=== PATIENT | female | born 1945 | race Caucasian/White ===

== ENCOUNTER 2024-06-05 14:43 | Emergency (ER) | payer MEDICARE, BC, SELFPAY ==
[2024-06-05 15:10] VITALS: BP 125/80; PULSE 73; RESP 18; TEMP 36.7; O2SAT 97; BMI 24.5
--- NOTE | 2024-06-05 15:20 | EXP.UTC ---
Discharge Plan Disposition Patient Disposition: Home, Self-Care Condition: Good Prescriptions Prescriptions: New phenazopyridine [Pyridium] 200 mg tablet 200 mg PO Q8H 2 Days Qty: 6 0RF No Action levothyroxine 175 mcg tablet 175 mcg PO DAILY Patient Comments: TAKE 1 TABLET BY MOUTH EVERY DAY clonazepam 0.5 mg tablet 0.5 mg PO BID Patient Comments: TAKE 1 TABLET BY MOUTH TWICE DAILY Referrals Follow up/Referrals: Serge Andrew MD [Primary Care Provider] - See instructions Activity Restrictions/Add. Instructions Additional Instructions/Restrictions: Continue medication that you was prescribed Your Urine was sent for culture and should be back in the next couple of days make sure to follow up with your Family Doctor to see the culture to make sure you are on the correct antibiotics make sure that you are drinking plenty of fluids Straight to ER if any life threatening symptoms Clinical Impressions Clinical Impression: Burning with urination Instructions Patient Instructions: Phenazopyridine Print Language Print Language: Citizen Of [place] Discharge ED Provider: Latasha Bernal [facility] General Stated complaint: uti Mode of Arrival: Ambulatory Source of Information: Patient Limitations: No Limitations Time Seen by Provider: 06/05/24 15:20 Description of Symptoms (Recalled from Triage Doc. by RN): PATIENT C/O BLADDER AND FLANK PAIN HEENT Symptoms (Recalled from RN notes): No Resp Symptoms (Recalled from RN notes): No Skin Symptoms (Recalled from RN notes): No MS Symptoms (Recalled from RN notes): No Functional Status (Recalled from RN notes): WNL History of Present Illness Provider Complaint: Patient states that she was seen by her PCP earlier in the week and started on Antibiotics for UTI but states that she doesnt think they are working States that she is still having burning when she urinates and still having the feeling like she has to go all the time so she came in to get her urine checked again not sure the medication she was put on helped Related Data Home Medications ?Medication ?Instructions ?Recorded ?Confirmed clonazepam 0.5 mg tablet 0.5 mg PO BID 06/05/24 06/05/24 levothyroxine 175 mcg tablet 175 mcg PO DAILY 06/05/24 06/05/24 Previous Rx's ?Medication ?Instructions ?Recorded phenazopyridine 200 mg tablet 200 mg PO Q8H pain 2 days #6 tabs 06/05/24 (Pyridium) Allergies Allergy/AdvReac Type Severity Reaction Status Date / Time No Known Allergies Allergy Verified 06/05/24 15:18 Worker's Comp Is this a Worker's Comp case?: No [facility] Disclaimer: The information contained in this section may have been updated after the patient was seen, as this information can be updated by other users. Medical History (Updated 06/05/24 @ 15:59 by Latasha Bernal APRN) Thyroid disease Depression Anxiety Urinary tract infection Hyperlipidemia Social History Smoking Status: Unknown if ever smoked alcohol intake: never current occupational status: retired and disabled Travel in the last 8 weeks: None ROS Obtained: Yes All systems reviewed & no additional complaints except as documented and Yes Systems reviewed as appropriate & no additional complaints except as documented Constitutional Constitutional: Reports system reviewed and no additional complaints, except as documented and Reports as per HPI ENT Ears, Nose, Mouth, and Throat: Reports system reviewed and no additional complaints, except as documented and Reports as per HPI Cardiovascular Cardiovascular: Reports system reviewed and no additional complaints, except as documented and Reports as per HPI Respiratory Respiratory: Reports system reviewed and no additional complaints, except as documented and Reports as per HPI Gastrointestinal Gastrointestingal: Reports system reviewed and no additional complaints, except as documented and as per HPI; Denies abdominal pain Genitourinary Female Genitourinary: Reports system reviewed and no additional complaints, except as documented, Reports as per HPI, Reports dysuria, Reports urinary frequency and Reports urinary urgency Musculoskeletal Musculoskeletal: Reports system reviewed and no additional complaints, except as documented and Reports as per HPI Integumentary/Breasts Skin/Breast: Reports system reviewed and no additional complaints, except as documented and Reports as per HPI Physical Exam General General appearance: alert and in no apparent distress ENT ENT exam: Present normal exam, normal oropharynx, mucous membranes moist and TM's normal bilaterally Respiratory Respiratory exam: Present normal lung sounds bilaterally; Absent respiratory distress or wheezes Cardiovascular Cardiovascular exam: Present regular rate, normal rhythm and normal heart sounds Abdominal Exam Abdominal exam: Present soft and normal bowel sounds; Absent distention or tenderness Neurological Exam Neurological exam: Present alert, oriented X3 and normal gait Medical Decision Making Medical Records Screening: Per USPSTF and CDC recommendations, given the prevalence of disease in our region, it is our hospital?s policy to screen for HIV and viral Hepatitis for all patients aged 18 and over and those with ongoing risk factors. Per Inquiry Pt receiving controlled substance: No Per was queried for this patient: No Vital Signs: 06/05/24 15:10 Temperature 98.0 F Temperature Source Oral Pulse Rate [Left Brachial] 73 Respiratory Rate 18 Blood Pressure [Left Arm] 125/80 Blood Pressure Mean [Left Arm] 95 Blood Pressure Source [Left Arm] Automatic Cuff Blood Pressure Position [Left Arm] Sitting 02 Sat by Pulse Oximetry 97 Oxygen Delivery Method Room Air Lab Data Lab results reviewed: Yes I reviewed the patient's lab results. Orders (Tests/Meds): ORDERS Category Date Time Status Urine Culture Stat Micro 06/05/24 14:49 Ordered
[2024-06-05 15:52] LABS: Apearance,Urine Turbid (Clear); Bilirubin,Urine Negative (Negative); Blood, Urine Negative (Negative); Color,Urine Dark Yellow (Yellow); Glucose,Urine (UA) Negative (Negative); Ketones,Urine Negative (Negative); Protein,Urine Negative (Negative); UTC Leukocyte Esterase,Urine Negative (Negative); UTC Nitrate,Urine Negative (Negative); Urobilinogen,Urine 1 EU/dl (0.2)
[2024-06-05 16:00] VITALS: BP 125/80; PULSE 73; RESP 18; TEMP 36.7; O2SAT 97
== END 2024-06-05 16:05 | disposition home or self-care (01) ==
PROVIDERS: Emergency Provider Nurse Practitioner; PCP Family Medicine
DX: R30.9 Painful micturition, unspecified (principal)
CPT/HCPCS: 81003; 87086; 99213; G0381

== ENCOUNTER 2024-06-19 09:06 | Emergency (ER) | payer MEDICARE, BC, SELFPAY ==
[2024-06-19] VITALS (11 sets, daily range): BP systolic 130–159; BP diastolic 81–96; PULSE 58–77; RESP 11–16; TEMP 36.8–37; O2SAT 95–99; BMI 26.5
--- NOTE | 2024-06-19 09:16 | CT_ITS ---
PROCEDURE INFORMATION: Exam: CTA Chest With Contrast Exam date and time: 06/19/2024 9:59 AM Age: 78 years old Clinical indication: Other: Hypoxia TECHNIQUE: Imaging protocol: Computed tomographic angiography of the chest with contrast. Exam focused on the arteries. 3D rendering (Not supervised by radiologist): MIP and/or 3D reconstructed images were created by the technologist. Radiation optimization: All CT scans at this facility use at least one of these dose optimization techniques: automated exposure control; mA and/or kV adjustment per patient size (includes targeted exams where dose is matched to clinical indication); or iterative reconstruction. Contrast material: ISOVUE 370; Contrast volume: 75 ml; Contrast route: INTRAVENOUS (IV); COMPARISON: CT ABDOMEN PELVIS W CON 06/19/2024 9:59 AM FINDINGS: Pulmonary arteries: Contrast within the main pulmonary artery 630 Hounsfield units which is excellent. Aorta: Ectatic ascending aorta at 32 x 33 mm. Lungs: Hyperinflation mild emphysematous type changes. Pleural spaces: Unremarkable. No pneumothorax. No pleural effusion. Heart: Unremarkable. No cardiomegaly. No pericardial effusion. Lymph nodes: Unremarkable. No enlarged lymph nodes. Diaphragm: Elevated left hemidiaphragm. Minimal left base consolidation having the appearance of atelectasis. Intraperitoneal space: The abdomen and pelvis will be discussed in a separate examination. Bones/joints: Arthritic changes in the thoracolumbar spine with cervical spine incompletely snow fixation. Soft tissues: Unremarkable. IMPRESSION: 1. No evidence of pulmonary emboli. 2. Mild left base consolidation possibly atelectasis although superimposed infection can not be excluded. COMMENTS: The presence of pulmonary emphysema on CT is an independent risk factor for lung cancer. In the absence of a history or active diagnosis of lung cancer, it is recommended that this patient with emphysema be evaluated for enrollment in a low dose CT lung cancer screening program.
--- NOTE | 2024-06-19 09:16 | CT_ITS ---
PROCEDURE INFORMATION: Exam: CT Abdomen And Pelvis With Contrast Exam date and time: 06/19/2024 9:59 AM Age: 78 years old Clinical indication: Abdominal pain; Additional info: Lower abd pain TECHNIQUE: Imaging protocol: Computed tomography of the abdomen and pelvis with contrast. 3D rendering (Not supervised by radiologist): MIP and/or 3D reconstructed images were created by the technologist. Radiation optimization: All CT scans at this facility use at least one of these dose optimization techniques: automated exposure control; mA and/or kV adjustment per patient size (includes targeted exams where dose is matched to clinical indication); or iterative reconstruction. Contrast material: ISOVUE; Contrast volume: 75 ml; Contrast route: IV; COMPARISON: CT ANGIO CHEST PE PROTOCOL 06/19/2024 9:59 AM FINDINGS: Lungs: The lungs were discussed in a separate examination. Liver: The liver is very fatty nonenlarged. Gallbladder and biliary ducts: Normal. No calcified stones. No ductal dilation. Pancreas: Normal. No ductal dilation. Spleen: There is a subcapsular fluid collection involving the posterior aspect of the spleen measuring 12 x 22 mm image 4/20. Adrenal glands: Normal. No mass. Kidneys and ureters: Subtle air suspected diminished cortical enhancement involving the posterior aspect of the right kidney seen on images 4/41 through 4/44. Can not exclude pyelonephritis. Stomach and bowel: [id number]-lveam amount of retained fecal material. Appendix: Unremarkable visualized small right lower quadrant appendix. Intraperitoneal space: See Spleen finding. Vasculature: Vascular calcifications without aneurysm. Lymph nodes: Unremarkable. No enlarged lymph nodes. Urinary bladder: Unremarkable as visualized. Reproductive: Unremarkable as visualized. Bones/joints: Arthritis in listhesis in the spine. Schmorl's nodes in the spine. Soft tissues: Moderate artifact is noted from the patient's arms scanned by her side. IMPRESSION: 1. Extensive fecal retention. 2. Subcapsular splenic fluid collection. The spleen is otherwise unremarkable. 3. Fatty liver. 4. Area of suspected diminished cortical enhancement involving the right kidney posteriorly. Possible pyelonephritis
--- NOTE | 2024-06-19 09:21 | HMH.EDGENADL ---
Discharge Plan Disposition Patient Disposition: Admitted Chief Complaint: Abdominal Pain Prescriptions Prescriptions: No Action levothyroxine 175 mcg tablet 175 mcg PO DAILY Patient Comments: TAKE 1 TABLET BY MOUTH EVERY DAY clonazepam 0.5 mg tablet 0.5 mg PO BID Patient Comments: TAKE 1 TABLET BY MOUTH TWICE DAILY phenazopyridine [Pyridium] 200 mg tablet 200 mg PO Q8H 2 Days Qty: 6 0RF Referrals Follow up/Referrals: Serge Andrew MD [Primary Care Provider] - See instructions Clinical Impressions Clinical Impression: Acute UTI, Encephalopathy acute, Hypokalemia, Hypoxemia Instructions Patient Instructions: DI for Acute Abdominal Pain Print Language Print Language: [place] Discharge ED Provider: Fausto Bravo General Adult HPI General Chief complaint: Abdominal Pain Stated complaint: lower abd pain, burning chills Time Seen by Provider: 06/19/24 09:10 History of Present Illness HPI narrative: Patient is a 78-year-old female present today with multiple complaints. She primarily states that she believes that she has a urinary tract infection stating that she is having significant burning/dysuria with urination. This has been ongoing since around [place]. She was recently in the urgent treatment clinic where she had a normal urinalysis but was told she had a urinary tract infection and has been on antibiotics. She is unsure as to the exact antibiotic that she has been on. She has had a mild cough but states that is been at her baseline she has a history of chronic smoking and occasionally has bronchitis but has not been diagnosed with COPD she does not require oxygen at home. Has never been told that she has hypoxemia. She denies any significant shortness of breath or chest pain today. She does states she has been having chills at home. And diffuse abdominal pain. Related Data Home Medications ?Medication ?Instructions ?Recorded ?Confirmed clonazepam 0.5 mg tablet 0.5 mg PO BID 06/05/24 06/19/24 levothyroxine 175 mcg tablet 175 mcg PO DAILY 06/05/24 06/19/24 Previous Rx's ?Medication ?Instructions ?Recorded phenazopyridine 200 mg tablet 200 mg PO Q8H pain 2 days #6 tabs 06/05/24 (Pyridium) Allergies Allergy/AdvReac Type Severity Reaction Status Date / Time No Known Allergies Allergy Verified 06/19/24 10:36 [facility] Disclaimer: The information contained in this section may have been updated after the patient was seen, as this information can be updated by other users. Medical History (Updated 06/19/24 @ 11:56 by Fausto Bravo MD) Thyroid disease Depression Anxiety Urinary tract infection Hyperlipidemia Social History Smoking Status: Current every day smoker alcohol intake: never current occupational status: retired and disabled Travel in the last 8 weeks: None Have you lived/traveled outside US in past 30 days?: No Contact w/someone who lives/traveled outside US past 30 days?: No Exposure to someone with infectious disease in past 14 days?: No Do you have a fever (greater than 100.4 F or 38 C)?: No Have you tested positive for COVID-19: No Exposed to someone with COVID-19 in past 14 days?: No Do you have a sore throat?: No Do you have a cough?: No Do you have any weakness?: No Do you have any diarrhea?: No Are you experiencing any unusual bleeding?: No Do you have any muscle aches/pain?: No Do you have any abdominal pain?: Yes Are you experiencing loss of taste or smell?: No ROS Obtained: Yes All systems reviewed & no additional complaints except as documented Physical Exam General General appearance: alert and in no apparent distress Respiratory Respiratory exam: Present normal lung sounds bilaterally and other (Oxygen saturations 88 to 89% on room air with a good waveform placed on 2 L with correction); Absent respiratory distress Cardiovascular Cardiovascular exam: Present regular rate and normal rhythm Abdominal Exam Abdominal exam: Present soft and tenderness (Patient has diffuse abdominal tenderness primarily located in the lower bilateral quadrants no CVA tenderness bilaterally) Neurological Exam Neurological exam: Present alert and oriented X3 Medical Decision Making Medical Records Screening: Per USPSTF and CDC recommendations, given the prevalence of disease in our region, it is our hospital?s policy to screen for HIV and viral Hepatitis for all patients aged 18 and over and those with ongoing risk factors. Per Inquiry Pt receiving controlled substance: No Vital Signs: 06/19/24 09:08 06/19/24 09:12 06/19/24 09:30 Temperature 98.6 F Temperature Source Oral Pulse Rate 77 70 Pulse Rate [Left Radial] 65 Respiratory Rate 12 15 Blood Pressure 134/84 142/88 H Blood Pressure [Right Arm] 134/84 Blood Pressure Mean [Right Arm] 100 02 Sat by Pulse Oximetry 97 95 96 Oxygen Delivery Method Nasal Cannula Nasal Cannula Nasal Cannula Oxygen Flow Rate (LPM) 2 2 2 06/19/24 10:19 06/19/24 10:30 06/19/24 11:00 Temperature Temperature Source Pulse Rate 66 63 Pulse Rate [Left Radial] Respiratory Rate 16 13 14 Blood Pressure 140/81 141/82 H 141/93 H Blood Pressure [Right Arm] Blood Pressure Mean [Right Arm] 02 Sat by Pulse Oximetry 95 95 95 Oxygen Delivery Method Room Air Room Air Nasal Cannula Oxygen Flow Rate (LPM) 2 06/19/24 11:30 Temperature Temperature Source Pulse Rate 58 L Pulse Rate [Left Radial] Respiratory Rate 16 Blood Pressure 142/83 H Blood Pressure [Right Arm] Blood Pressure Mean [Right Arm] 02 Sat by Pulse Oximetry 97 Oxygen Delivery Method Nasal Cannula Oxygen Flow Rate (LPM) 2 Lab Data Lab results reviewed: Yes I reviewed the patient's lab results. Lab Results 06/19/24 09:26: WBC 4.9, RBC 4.90, Hgb 14.1, Hct 42.8, MCV 87.3, MCH 28.8, MCHC 32.9, RDW 15.4, Plt Count 258, MPV 9.9, Neut % (Auto) 62.5, Lymph % (Auto) 28.0, [place] % (Auto) 7.1, Eos % (Auto) 1.2, Baso % (Auto) 1.0, Neut # (Auto) 3.1, Lymph # (Auto) 1.4, [place] # (Auto) 0.4, Eos # (Auto) 0.1, Baso # (Auto) 0.1, Sodium 135 L, Potassium 2.7 L*, Chloride 97 L, Carbon Dioxide 29, Anion Gap 11.7, BUN 10, Creatinine 1.10 H, Estimated Creat Clear 46, Estimated GFR 48 L, Est GFR ( Amer) 58 L, Glucose 103 H, Lactate 1.6, Calcium 8.6, Total Bilirubin 0.9, AST 45 H, ALT 23, Alkaline Phosphatase 69, Troponin I 0.02, NT-Pro-B Natriuret Pep 109, Total Protein 6.4, Albumin 4.1, Globulin 2.3, Albumin/Globulin Ratio 1.8, Lipase 52 06/19/24 09:31: SARS-CoV-2 (PCR) Not detected, Influenza A Untype (PCR) Not detected, Influenza Type B (PCR) Not detected 06/19/24 09:45: HCV Ab JOANNA w/Rflx PCR Qn Negative, HIV Ag/Ab Combo Qual Negative 06/19/24 10:17: Urine Color Yellow, Urine Appearance Clear, Urine pH 6.5, Ur Specific [place] 1.015, Urine Protein 1+ A, Urine Glucose (UA) Trace, Urine Ketones Trace, Urine Blood Negative, Urine Nitrate Positive A, Urine Bilirubin 2+ A, Urine Urobilinogen 2.0, Ur Leukocyte Esterase Trace, Urine RBC None, Urine WBC 5-10, Ur Squamous Epith Cells 3-5, Urine Bacteria 1+, Urine Yeast 2+ 06/19/24 09:26 06/19/24 09:26 Orders (Tests/Meds): ED MEDICATIONS Generic Name Dose Route Start Last Admin Trade Name Freq PRN Reason Stop Dose Admin Potassium Chloride/Water 100 mls @ 100 mls/hr 06/19/24 10:00 06/19/24 11:12 Potassium Chloride 10meq/100ml Ivpb IV 06/19/24 12:59 100 mls/hr Q1H ADITYA Administration Ceftriaxone Sodium 1 gm/ 50 mls @ 100 mls/hr 06/19/24 11:22 Sodium Chloride IV 06/19/24 11:51 ONCE ONE Discontinued Medications Generic Name Dose Route Start Last Admin Trade Name Freq PRN Reason Stop Dose Admin Acetaminophen 1,000 mg 06/19/24 09:16 06/19/24 09:38 Acetaminophen 1,000mg/100ml Vial IV 06/19/24 09:17 1,000 mg ONCE ONE Administration Sodium Chloride 1,000 mls @ 999 mls/hr 06/19/24 09:30 06/19/24 09:38 Sod Chlor 0.9% 1000ml Bag IV 06/19/24 10:30 999 mls/hr .Q1H1M ADITYA Administration Iopamidol 70 ml 06/19/24 10:08 06/19/24 10:09 Iopamidol-370 (76%);100ml Bottle IV 06/19/24 10:09 70 ml ONCE ONE Administration Potassium Chloride 40 meq 06/19/24 09:47 06/19/24 09:52 Potassium Chloride 20meq Tab PO 06/19/24 09:48 40 meq ONCE ONE Administration Sodium Chloride 50 ml 06/19/24 10:08 06/19/24 10:09 0.9 % Sodium Chloride 50 Ml Vial IV 06/19/24 10:09 50 ml ONCE ONE Administration Sodium Chloride 10 ml 06/19/24 10:08 06/19/24 10:09 Sodium Chloride 0.9% 10ml Syr (Rad Only) IV 06/19/24 10:09 10 ml ONCE ONE Administration ORDERS Category Date Time Status CT abdomen pelvis w con Stat Cat Scan 06/19/24 09:[address] angio chest PE protocol Stat Cat Scan 06/19/24 09:16 Completed BNP [NT Pro Brain Natriuretic Pep.] Stat Lab 06/19/24 09:26 Completed CBC w/Auto Diff [Complete Blood Count Auto Diff] Stat Lab 06/19/24 09:26 Completed CMP [Comprehensive Metabolic Panel] Stat Lab 06/19/24 09:26 Completed HIV Combo Stat Lab 06/19/24 09:45 Completed Hepatitis C Ab Qual. W/ RFX Stat Lab 06/19/24 09:45 Completed Lactic Acid Stat Lab 06/19/24 09:26 Completed Lipase Stat Lab 06/19/24 09:26 Completed Rapid PCR Covid and Flu A/B Stat Lab 06/19/24 09:31 Completed Trop I [Troponin I] Stat Lab 06/19/24 09:26 Completed Troponin I Q3H Lab 06/19/24 12:30 Ordered Troponin I Q3H Lab 06/19/24 15:30 Ordered UA [Urinalysis and Microscopic] Stat Lab 06/19/24 10:17 Completed Blood Culture Stat Micro 06/19/24 09:41 Received Urine Culture Stat Micro 06/19/24 10:17 Received ECG Data Tracing #1: I reviewed this ECG and interpreted as documented below: Ventricular rate 63 normal sinus rhythm there are nonspecific T wave inversions in the inferior and anterolateral precordial leads which are nonspecific no ST depressions or elevations normal axis no significant conduction abnormalities Medical Decision Narrative: 78-year-old presenting with multiple complaints today. First of all she is hypoxic on initial evaluation. She denies any respiratory symptoms. Ox saturations were 88 to 89% she does have a history of chronic smoking and from historical standpoint sounds like she occasionally has bronchitis. She may have underlying COPD that is been undiagnosed. However she has been in many healthcare settings and is never been told that she is hypoxemic so this seems to be a new problem. For this reason I will obtain a CT PE in the setting of already getting a CT scan of her abdomen for the significant abdominal pain and lower abdominal discomfort that was not explained by recent negative urinalysis. Differential includes pulmonary embolism pneumonia abdominal pathology such as malignancy diverticulitis colitis etc. Labs pending as well IV fluids and Tylenol have been administered. Additionally patient has been having some shaking chills and blood cultures COVID and flu have also been added to this workup. Of note patient's pulled me out into the hallway and stated that the patient has been out of her mind the last few months . Patient's labs returned which showed a potassium of 2.7. CT scan of the patient's chest abdomen pelvis were performed which I personally interpreted which shows no significant abnormalities aside from some contrast abnormality uptake in the kidney consistent with possible pyelonephritis which is consistent with her urinary tract infection on her urinalysis. Therefore I believe that some of her waxing and waning mental symptoms may be secondary to encephalopathy. She also has a very low potassium that will take an extended period of time to replace additionally she came in hypoxic at this point without a definitive diagnosis for her back hypoxemia I suspect that this is chronic in nature but she is nonetheless on the new oxygen requirement right now. I discussed the case with Dr. Andrei rhodes who will admit her for IV antibiotics and further management. Critical Care Critical Care Time Critical Care Time: Yes Attestation: On 06/19/24, the high probability of a clinically significant, sudden or life threatening deterioration of the following system(s) required my full and direct attention, intervention and personal management. The time I documented below is in addition to time spent performing reported procedures but includes the following listed in this critical care notation. Total Time Total Critical Care Time: 35
[2024-06-19 09:36] LABS: Basophils # 0.1 K/mm3 (0-0.2); Eosinophils # 0.1 K/mm3 (0.0-0.4); Eosinophils % 1.2 % (0.1-12.0); Hematocrit 42.8 % (37.0-47.0); Hemoglobin 14.1 g/dL (12.2-16.2); Lymphocytes # 1.4 K/mm3 (0.7-4.5); Mean Corpuscular HGB Conc 32.9 g/dL (31.8-35.4); Mean Corpuscular Hemoglobin 28.8 pg (27.0-31.2); Mean Corpuscular Volume 87.3 fl (81-99); Mean Platelet Volume 9.9 fl (7.4-10.4); Monocytes # 0.4 K/mm3 (0.1-1.0); Monocytes % 7.1 % (1.7-9.3); Neutrophils # 3.1 K/mm3 (1.8-7.8); Neutrophils % 62.5 % (37.0-80.0); Platelet Count 258 K/mm3 (142-424); Red Cell Distribution Width 15.4 % (11.5-17.5); White Blood Count 4.9 K/mm3 (4.8-10.8)
--- NOTE | 2024-06-19 09:36 | ECG_ITS ---
APPROVED REPORT Exam: Resting ECG HR:63 bpm ECG Measurements Heart Rate 63 AXES RI 168 P 74 QRSd 86 QRS 20 QT 427 T 209 QTc 435 Conclusion SINUS RHYTHM POSSIBLE RIGHT VENTRICULAR CONDUCTION DELAY [RSR (QR) IN V1/V2] MODERATE T-WAVE ABNORMALITY, CONSIDER ANTEROLATERAL ISCHEMIA [-0.1+ mV T-WAVE IN V3-V6] MODERATE T-WAVE ABNORMALITY, CONSIDER INFERIOR ISCHEMIA [-0.1+ mV T-WAVE IN II/aVF] ABNORMAL ECG UNCONFIRMED REPORT Electronically signed by : Lm Bravo, 06/19/2024 15:00:08
[2024-06-19] MEDS: 0.9 % SODIUM CHLORIDE 1000ML 1,000 ML 999 ML IV (09:38)
[2024-06-19] MEDS: ACETAMINOPHEN 1,000MG/100ML VIAL 1000 MG IV (09:38)
[2024-06-19 09:39] LABS: Coronavirus 19, PCR Not Detected (NotDetected); Influenza A, PCR Not Detected (NotDetected); Influenza B, PCR Not Detected (NotDetected)
[2024-06-19 09:44] LABS: Albumin Level 4.1 g/dl (3.5-5.0); Chloride 97 mmol/L (98-107); Sodium 135 mmol/L (136-145)
[2024-06-19 09:46] LABS: Potassium 2.7 mmoL/L (3.5-5.1)
--- NOTE | 2024-06-19 09:46 | PC.NURSE ---
aware of potassium
[2024-06-19 09:47] LABS: Alanine Aminotransferase 23 U/L (12-78); Albumin/Globulin Ratio 1.8 (1.1-1.8); Alkaline Phosphatase 69 U/L (38-126); Anion Gap 11.7 mEq/L (5-15); Aspartate Amino Transferase 45 U/L (14-36); Bilirubin,Total 0.9 mg/dl (0.2-1.3); Blood Urea Nitrogen 10 mg/dl (7-17); Calcium 8.6 mg/dl (8.4-10.2); Carbon Dioxide 29 mmol/L (22.0-30.0); Creatinine Clearance Estimated 46 mL/min (50-200); Estimated Glomerular Filt Rate 48 ml/min (>60); GFR (African American) 58 ML/MIN (>60); Globulin 2.3 g/dL (1.3-3.2); Glucose 103 mg/dl (74-100); Total Protein,Serum 6.4 g/dl (6.3-8.2)
[2024-06-19 09:48] LABS: Lipase 52 U/L (23-300)
[2024-06-19] MEDS: POTASSIUM CHLORIDE 20MEQ TAB 40 MEQ PO (09:52)
[2024-06-19] MEDS: KCl 10mEq/100ml 100 ML 100 MEQ IV ×3 (09:53→12:13)
--- NOTE | 2024-06-19 09:54 | PC.NURSE ---
pt to CT via stretcher
[2024-06-19 09:57] LABS: NT Pro Brain Natriuretic Pep. 109 pg/mL (0-450)
[2024-06-19 09:59] LABS: Troponin I 0.02 ng/ml (0.00-0.034)
[2024-06-19] MEDS: IOPAMIDOL-370 (76%);100ML BOTTLE 70 ML IV (10:09)
[2024-06-19] MEDS: SODIUM CHLORIDE 0.9% 10ML SYR (RAD ONLY) 10 ML IV (10:09)
[2024-06-19] MEDS: 0.9 % SODIUM CHLORIDE 50 ML VIAL IV (10:09)
--- NOTE | 2024-06-19 10:12 | PC.NURSE ---
pt back to room via stretcher
[2024-06-19 10:16] LABS: Lactic Acid 1.6 mmol/L (0.7-2.1)
[2024-06-19 10:29] LABS: Microscopic, Urine URINE MICROSCOPIC (MICROSCOPIC)
[2024-06-19 10:39] LABS: Appearance,Urine CLEAR (Clear); Blood, Urine Negative (Negative); Color,Urine YELLOW (Yellow); Glucose,Urine (UA) TRACE (Negative); Ketones,Urine TRACE (Negative); Leukocyte Esterase,Urine TRACE (Negative); Nitrate,Urine POSITIVE (Negative); PH,Urine 6.5 (5.0-8.5); Protein,Urine 1+ (Negative); Specific Gravity, Urine 1.015 (1.005-1.030)
--- NOTE | 2024-06-19 11:01 | PC.NURSE ---
I rounded on the pt. no new complaints. I took her a warm blanket. call guevara in reach.
[2024-06-19 11:07] LABS: HIV Combo NEGATIVE (Negative)
[2024-06-19 11:14] LABS: Hepatitis C Ab Qual. W/ RFX NEGATIVE (Negative)
[2024-06-19 11:19] LABS: Bacteria,Urine 1+ /lpf; Yeast,Urine 2+ /lpf
[2024-06-19 11:20] LABS: Bilirubin,Urine 2+ (Negative)
--- NOTE | 2024-06-19 11:53 | PC.NURSE ---
on phone with hospitalist
--- NOTE | 2024-06-19 11:54 | PC.NURSE ---
call made to [facility] house supervisor for bed placement
--- NOTE | 2024-06-19 12:08 | PC.NURSE ---
rounded on pt no needs at this time. she did move from bed to the chair and o2 was put back on pt at this time
--- NOTE | 2024-06-19 12:37 | PC.NURSE ---
report called to jaye on second floor
--- NOTE | 2024-06-19 12:43 | PC.NURSE ---
holding pt in ER until arrives. pt states she does not want to stay in the hospital for care, she wants to go home due to her missing her cats
[2024-06-19] MEDS: CEFTRIAXONE SODIUM 1 GM in 0.9 % SODIUM CHLORIDE 50 ML IV (13:36)
== END 2024-06-19 13:52 | disposition home or self-care (01) ==
LOC: ER 11:56 → 2ND 12:24
PROVIDERS: Emergency Provider Student in an Organized Health Care Education/Training Program; PCP Family Medicine
DX: R09.02 Hypoxemia (principal); E87.6 Hypokalemia; G93.40 Encephalopathy, unspecified; R10.30 Lower abdominal pain, unspecified; R30.0 Dysuria; R30.9 Painful micturition, unspecified; R05.9 Cough, unspecified; Z72.0 Tobacco use
CPT/HCPCS: 36415; 71275; 74177; 80053; 81001; 83605; 83690; 83880; 84484; 85025; 86803; 87040; 87086; 87389; 87636; 93005; 96361; 96365; 99291; J0131; J0696; J3480; J7030; Q9967

== ENCOUNTER 2024-07-10 09:21 | Inpatient (IN) | payer MEDICARE, BC, SELFPAY ==
[2024-07-10] VITALS (16 sets, daily range): BP systolic 120–147; BP diastolic 75–90; PULSE 54–77; RESP 16–21; TEMP 36.5–37; O2SAT 90–98; BMI 21.2; BMI 24.1
--- NOTE | 2024-07-10 09:38 | HMH.EDGENADL ---
Discharge Plan Disposition Chief Complaint: Urogenital-Female Prescriptions Prescriptions: No Action levothyroxine 175 mcg tablet 200 mcg PO DAILY Patient Comments: TAKE 1 TABLET BY MOUTH EVERY DAY clonazepam 0.5 mg tablet 0.5 mg PO BID Patient Comments: TAKE 1 TABLET BY MOUTH TWICE DAILY phenazopyridine [Pyridium] 200 mg tablet 200 mg PO Q8H 2 Days Qty: 6 0RF methenamine hippurate 1 gram tablet 1 g PO BID Patient Comments: TAKE 1 TABLET BY MOUTH TWICE DAILY acetaminophen-codeine 300-30 mg tablet 1 tab PO TID PRN (Reason: pelvic pain) Patient Comments: TAKE 1 TABLET BY MOUTH THREE TIMES DAILY FOR 4 DAYS NEEDED estradiol 0.01 % (0.1 mg/gram) cream 1 applic VAGINAL WEEKLY Patient Comments: INSERT 1 GRAM VAGINALLY 3 TIMES PER WEEK Referrals Follow up/Referrals: Serge Andrew MD [Primary Care Provider] - See instructions Clinical Impressions Clinical Impression: Encephalopathy, Acute UTI, Generalized weakness, Vaginal yeast infection, Acute hypokalemia, Acute hyponatremia, Constipation Instructions Patient Instructions: DI for Urinary Tract Infection (UTI), DI for Urinary Tract Infection in Children Print Language Print Language: Indonesian Discharge ED Provider: Fausto Bravo General Adult HPI General Chief complaint: Urogenital-Female Stated complaint: pain and frequent urination, confusion, not eating Time Seen by Provider: 07/10/24 09:38 Mode of Arrival: Ambulatory Source of Information: Patient and Spouse Description of Symptoms (Recalled from ER Triage Doc. by RN): Patient presents with her . States she was originally diagnosed right after [place] with a bladder and a kidney infection. States she has seen her primary care provider and urologist, none of which has offered any explanations. States she is having increased weakness, confusion, increase lower abdominal pain, and the patient states, I'm burning like crazy. States she had an ultrasound on at [facility]. The majority of th history of present illness is obtained from the patient's spouse. The patient is a poor historian and only provides vague responses to questions. History of Present Illness HPI narrative: Patient is a 78-year-old female brought in today with multiple complaints. Primarily she describes urinary burning and pain in her lower pelvis. She has known history of organ prolapse which was diagnosed many years ago. She was recently in the emergency department seen by me on [address] scan showing abnormal uptake in the kidney consistent with pyelonephritis in addition to a nitrite positive urine. She also had a potassium of 2.7. At that time given the concerns of her with encephalopathy I wanted to keep her in the hospital for admission however she ended up refusing. brings her in today saying her symptoms have only worsened. He did follow-up with urology who gave her some cream for her vagina in addition to another medication for her symptoms. Urine culture was negative on last evaluation as well. Has been states her mental status is worsened and her generalized weakness has worsened. He states she still gets very cantankerous and irritated when discussing her confusion but overall her symptoms have just worsened. Both of their primary concerns are the ongoing abdominal pain and lower abdomen. Related Data Home Medications ?Medication ?Instructions ?Recorded ?Confirmed clonazepam 0.5 mg tablet 0.5 mg PO BID 06/05/24 07/10/24 levothyroxine 175 mcg tablet 200 mcg PO DAILY 06/05/24 07/10/24 acetaminophen 300 mg-codeine 30 mg 1 tab PO TID PRN pelvic pain 07/10/24 07/10/24 tablet estradiol 0.01% (0.1 mg/gram) 1 applic vaginal WEEKLY 07/10/24 07/10/24 vaginal cream methenamine hippurate 1 gram tablet 1 g PO BID 07/10/24 07/10/24 Previous Rx's ?Medication ?Instructions ?Recorded phenazopyridine 200 mg tablet 200 mg PO Q8H pain 2 days #6 tabs 06/05/24 (Pyridium) Allergies Allergy/AdvReac Type Severity Reaction Status Date / Time No Known Allergies Allergy Verified 07/10/24 09:29 [facility] Disclaimer: The information contained in this section may have been updated after the patient was seen, as this information can be updated by other users. Medical History Thyroid disease Depression Anxiety Urinary tract infection Hyperlipidemia Social History Smoking Status: Never smoker alcohol intake: never current occupational status: retired and disabled Travel in the last 8 weeks: None Have you lived/traveled outside [place] in past 30 days?: No Contact w/someone who lives/traveled outside US past 30 days?: No Exposure to someone with infectious disease in past 14 days?: No Do you have a fever (greater than 100.4 F or 38 C)?: No Have you tested positive for COVID-19: No Exposed to someone with COVID-19 in past 14 days?: No Do you have a sore throat?: No Do you have a cough?: No Do you have any weakness?: No Do you have any diarrhea?: No Are you experiencing any unusual bleeding?: No Do you have any muscle aches/pain?: No Do you have any abdominal pain?: No Are you experiencing loss of taste or smell?: No ROS Obtained: Yes All systems reviewed & no additional complaints except as documented Physical Exam General General appearance: lethargic (Speaking very slowly) Respiratory Respiratory exam: Present normal lung sounds bilaterally Cardiovascular Cardiovascular exam: Present regular rate Abdominal Exam Abdominal exam: Present soft and tenderness (Lower abdominal tenderness); Absent distention Neurological Exam Neurological exam: Present alert and oriented X3 Medical Decision Making Medical Records Screening: Per USPSTF and CDC recommendations, given the prevalence of disease in our region, it is our hospital?s policy to screen for HIV and viral Hepatitis for all patients aged 18 and over and those with ongoing risk factors. Per Inquiry Pt receiving controlled substance: No Vital Signs: 07/10/24 09:24 07/10/24 09:40 07/10/24 09:45 Temperature 98.6 F Temperature Source Oral Pulse Rate 69 68 Pulse Rate [Radial] 77 Respiratory Rate 16 21 Blood Pressure 132/84 121/80 Blood Pressure [R Arm] 130/76 Blood Pressure Mean Blood Pressure Mean [R Arm] 94 02 Sat by Pulse Oximetry 95 95 95 Oxygen Delivery Method Room Air Room Air Room Air 07/10/24 10:00 07/10/24 12:03 07/10/24 12:16 Temperature Temperature Source Pulse Rate 65 57 L 56 L Pulse Rate [Radial] Respiratory Rate 17 18 18 Blood Pressure 126/77 129/75 123/83 Blood Pressure [R Arm] Blood Pressure Mean 98 92 Blood Pressure Mean [R Arm] 02 Sat by Pulse Oximetry 95 98 94 L Oxygen Delivery Method Room Air 07/10/24 12:31 07/10/24 12:45 07/10/24 13:00 Temperature Temperature Source Pulse Rate 58 L 57 L 58 L Pulse Rate [Radial] Respiratory Rate 18 18 18 Blood Pressure 138/87 147/84 H 146/83 H Blood Pressure [R Arm] Blood Pressure Mean 104 96 93 Blood Pressure Mean [R Arm] 02 Sat by Pulse Oximetry 97 96 96 Oxygen Delivery Method Lab Data Lab results reviewed: Yes I reviewed the patient's lab results. Lab Results 07/10/24 09:40: Urine Color Yellow, Urine Appearance Clear, Urine pH 6.5, Ur Specific Bric[place] 1.010, Urine Protein Negative, Urine Glucose (UA) Negative, Urine Ketones Negative, Urine Blood Negative, Urine Nitrate Positive A, Urine Bilirubin Negative, Urine Urobilinogen 0.2, Ur Leukocyte Esterase 1+ A, Urine RBC None, Urine WBC 5-10, Ur Squamous Epith Cells Occasional, Urine Bacteria Trace, Urine Yeast Occasional 07/10/24 10:20: WBC 3.7 L, RBC 4.66, Hgb 13.7, Hct 40.5, MCV 86.9, MCH 29.4, MCHC 33.8, RDW 15.3, Plt Count 252, MPV 10.2, Neut % (Auto) 63.5, Lymph % (Auto) 26.2, [place] % (Auto) 8.1, Eos % (Auto) 1.1, Baso % (Auto) 0.8, Neut # (Auto) 2.4, Lymph # (Auto) 1.0, [place] # (Auto) 0.3, Eos # (Auto) 0.0, Baso # (Auto) 0.0, Lactate 1.6, Ammonia < 9 L 07/10/24 10:23: VBG pH 7.40, VBG pCO2 50.9, VBG pO2 30.9, VBG HCO3 30.7 H, VBG Total CO2 32.2 H, VBG O2 Saturation 61.6, VBG Base Excess 5.8 H, VBG Lactic Acid 1.4 07/10/24 10:57: PT 11.3, INR 1.01, Sodium 130 L, Potassium 2.4 L*, Chloride 93 L, Carbon Dioxide 34 H, Anion Gap 5.4, BUN 11, Creatinine 1.30 H, Estimated Creat Clear 31, Estimated GFR 40 L, Est GFR ( Amer) 48 L, Glucose 94, Calcium 8.6, Phosphorus 2.7, Magnesium 2.1, Total Bilirubin 0.9, AST 41 H, ALT 20, Alkaline Phosphatase 61, Troponin I 0.03, Total Protein 6.0 L, Albumin 3.9, Globulin 2.1, Albumin/Globulin Ratio 1.9 H, Lipase 50 07/10/24 10:20 07/10/24 10:57 Orders (Tests/Meds): ED MEDICATIONS Generic Name Dose Route Start Last Admin Trade Name Freq PRN Reason Stop Dose Admin Potassium Chloride/Water 100 mls @ 100 mls/hr 07/10/24 11:30 07/10/24 12:19 Potassium Chloride 10meq/100ml Ivpb IV 07/10/24 14:29 100 mls/hr Q1H ADITYA Administration Discontinued Medications Generic Name Dose Route Start Last Admin Trade Name Freq PRN Reason Stop Dose Admin Fluconazole 200 mg 07/10/24 11:20 07/10/24 11:27 Fluconazole 200mg Tablet PO 07/10/24 11:21 200 mg ONCE ONE Administration Lactated Ringer's 1,000 mls @ 999 mls/hr 07/10/24 10:15 07/10/24 10:25 Lactated Ringer's 1000 Ml Bag IV 07/10/24 11:15 999 mls/hr .Q1H1M ADITYA Administration Ceftriaxone Sodium 1 gm/ 50 mls @ 100 mls/hr 07/10/24 11:19 07/10/24 11:26 Sodium Chloride IV 07/10/24 11:48 100 mls/hr ONCE ONE Administration Iopamidol 75 ml 07/10/24 11:35 07/10/24 11:36 Iopamidol-370 (76%);100ml Bottle IV 07/10/24 11:36 75 ml ONCE ONE Administration Ketorolac Tromethamine 15 mg 07/10/24 10:02 07/10/24 10:24 Ketorolac 30mg/Ml Vial IV 07/10/24 10:03 15 mg ONCE ONE Administration Ondansetron HCl 4 mg 07/10/24 10:02 07/10/24 10:25 Ondansetron 4mg/2ml Vial IV 07/10/24 10:03 4 mg ONCE ONE Administration Potassium Chloride 40 meq 07/10/24 11:19 07/10/24 11:26 Potassium Chloride 20meq Tab PO 07/10/24 11:20 40 meq ONCE ONE Administration Sodium Chloride 10 ml 07/10/24 11:35 07/10/24 11:36 Sodium Chloride 0.9% 10ml Syr (Rad Only) IV 07/10/24 11:36 10 ml ONCE ONE Administration ORDERS Category Date Time Status CT abdomen pelvis w con Stat Cat Scan 07/10/24 10:[address] head/brain wo con Stat Cat Scan 07/10/24 10:02 Completed Ammonia Stat Lab 07/10/24 10:20 Completed CBC w/Auto Diff [Complete Blood Count Auto Diff] Stat Lab 07/10/24 10:20 Completed CMP [Comprehensive Metabolic Panel] Stat Lab 07/10/24 10:57 Completed Lactic Acid Stat Lab 07/10/24 10:20 Completed Lipase Stat Lab 07/10/24 10:57 Completed Magnesium Stat Lab 07/10/24 10:57 Completed PT INR [Prothrombin Time INR] Stat Lab 07/10/24 10:57 Completed Phosphorous Stat Lab 07/10/24 10:57 Completed Trop I [Troponin I] Stat Lab 07/10/24 10:57 Completed Troponin I Q3H Lab 07/10/24 13:15 Ordered Troponin I Q3H Lab 07/10/24 16:15 Ordered UA [Urinalysis and Microscopic] Stat Lab 07/10/24 09:40 Completed Urine Culture Stat Micro 07/10/24 09:40 Received VBG [Venous Blood Gas] Stat RT 07/10/24 10:23 Completed Medical Decision Narrative: Patient with above history and physical presenting with generalized weakness worsening encephalopathy and lower abdominal discomfort and dysuria. Her urine is once again positive for nitrates. On exam of her external genitalia which appears normal aside from some mild organ prolapse this could be causing a physical obstruction causing urinary stasis and may need to be addressed downstream. Last time she was here she had a CT scan showing pyelonephritis and a potassium of 2.7. Will repeat these tests to see if there is any significant worsening or alternative diagnosis today. Additionally get a CT scan of her head given her changes in mental status over the last several months. Her is convinced that something is significantly wrong with her wants to be more aggressive today we will reassess after this initial workup is complete. CT scan of the patient's head performed which I personally interpreted which shows no acute intracranial pathology CT scan of the patient's abdomen pelvis I personally interpreted as well which shows no acute intra-abdominal pathology. Radiology reads consistent with this as well. Patient does have a nitrite positive urine again. Labs otherwise unremarkable aside from significant and worsening potassium which is 2.4 today. Sodium is also depressed at 130. The patient is generalized malaise she also has significant constipation on the CT scan which may be contributing as well in addition to her declining in function felt as though she needed to be admitted in particular for the prolonged potassium replacement treatment of urinary tract infection etc. Additionally in her urine she does have a yeast and fluconazole was administered this could be what is the cause of her significant burning that she is describing. Dr. Mccauley admitted the patient for further evaluation and management. Critical Care Critical Care Time Critical Care Time: No
--- NOTE | 2024-07-10 09:51 | PC.NURSE ---
dr allen at bedside
[2024-07-10 09:53] LABS: Microscopic, Urine URINE MICROSCOPIC (MICROSCOPIC)
[2024-07-10 09:55] LABS: Appearance,Urine CLEAR (Clear); Bilirubin,Urine Negative (Negative); Blood, Urine Negative (Negative); Color,Urine YELLOW (Yellow); Glucose,Urine (UA) Negative (Negative); Ketones,Urine Negative (Negative); Leukocyte Esterase,Urine 1+ (Negative); Nitrate,Urine POSITIVE (Negative); PH,Urine 6.5 (5.0-8.5); Protein,Urine Negative (Negative); Urobilinogen,Urine 0.2 EU/dl (0.2)
--- NOTE | 2024-07-10 09:56 | PC.NURSE ---
Dr Bravo at bedside for exam with Lashawn Figueroa RN
--- NOTE | 2024-07-10 10:02 | CT_ITS ---
PROCEDURE INFORMATION: Exam: CT Head Without Contrast Exam date and time: 07/10/2024 11:36 AM Age: 78 years old Clinical indication: Altered mental status/memory loss; Additional info: AMS TECHNIQUE: Imaging protocol: Computed tomography of the head without contrast. Radiation optimization: All CT scans at this facility use at least one of these dose optimization techniques: automated exposure control; mA and/or kV adjustment per patient size (includes targeted exams where dose is matched to clinical indication); or iterative reconstruction. COMPARISON: No relevant prior studies available. FINDINGS: Brain: There is mild to moderate small vessel disease. There is no evidence of acute parenchymal hemorrhage, extra-axial collection, or acute infarction. There is no mass effect, midline shift, or downward herniation. Cerebral ventricles: No ventriculomegaly. Paranasal sinuses: Visualized sinuses are unremarkable. No fluid levels. Mastoid air cells: Visualized mastoid air cells are well aerated. Bones: Unremarkable. No acute fracture. Soft tissues: Unremarkable. IMPRESSION: [id number] small vessel disease. No evidence of acute intracranial process.
--- NOTE | 2024-07-10 10:02 | CT_ITS ---
PROCEDURE INFORMATION: Exam: CT Abdomen And Pelvis With Contrast Exam date and time: 07/10/2024 11:39 AM Age: 78 years old Clinical indication: Abdominal pain; Additional info: Lower abdominal pain TECHNIQUE: Imaging protocol: Computed tomography of the abdomen and pelvis with contrast. Radiation optimization: All CT scans at this facility use at least one of these dose optimization techniques: automated exposure control; mA and/or kV adjustment per patient size (includes targeted exams where dose is matched to clinical indication); or iterative reconstruction. Contrast material: ISOVUE; Contrast volume: 75 ml; Contrast route: IV; COMPARISON: CT ABDOMEN PELVIS W CON 06/19/2024 9:59 AM FINDINGS: Lungs: Mild bronchiectasis and subsegmental atelectasis right mid middle lobe developed from prior study. Mild airway changes with some mucous plugging left lower lung zone and mild subpleural interstitial lung changes, stable. Liver: Fatty infiltration of the liver with indistinct focus of enhancement situated centrally in the right lobe measuring 2 cm unchanged but difficult to further characterize on this single-phase study. Findings may be transient and vascular in nature. Gallbladder and biliary ducts: Normal. No calcified stones. No ductal dilation. Pancreas: Unremarkable. Main pancreatic duct is not significantly dilated. Spleen: Small crescent shaped subcapsular splenic fluid collection along the posterolateral margin of the spleen unchanged. Spleen is otherwise unremarkable. Adrenal glands: Normal. No mass. Kidneys and ureters: Normal. No hydronephrosis. Stomach and bowel: Large amount of retained stool throughout the colon redemonstrated likely reflecting some degree of constipation. There is superimposed fecal impaction that has mildly progressed from previous exam. Appendix: No evidence of appendicitis. Intraperitoneal space: Unremarkable. No free air. No significant fluid collection. Vasculature: Scattered atherosclerotic changes of the abdominal aorta and iliac vessels. No aortic aneurysm. There is a intraluminal linear shaped filling defect within the portal vein similar to previous examination probably secondary to inflow of unopacified blood and doubtful for chronic non occlusive portal vein thrombosis. Findings could be confirmed on Doppler examination of the portal vein. Lymph nodes: Unremarkable. No enlarged lymph nodes. Urinary bladder: Unremarkable as visualized. Reproductive: Unremarkable as visualized. Bones/joints: Unremarkable. No acute fracture. Soft tissues: Unremarkable. IMPRESSION: 1. Large amount of stool throughout the colon and some degree of fecal impaction slightly progressed from prior exam. 2. Stable small subcapsular splenic fluid collection, otherwise spleen is unremarkable. 3. Fatty infiltration of the liver with stable enhancing indistinct focus right lobe of the liver that may be incidental and vascular in nature. 4. Heterogeneous enhancement of the portal vein unchanged as discussed above.
[2024-07-10 10:15] LABS: Bacteria,Urine Trace /lpf; Squamous Epithelial Cell,Urine Occasional #/hpf (0-5); Yeast,Urine Occasional /lpf
[2024-07-10] MEDS: KETOROLAC 30MG/ML VIAL 15 MG IV (10:24)
[2024-07-10] MEDS: LACTATED RINGERS 1000ML 1,000 ML 999 ML IV (10:25)
[2024-07-10] MEDS: ONDANSETRON 4MG/2ML VIAL 4 MG IV (10:25)
--- NOTE | 2024-07-10 10:25 | ECG_ITS ---
APPROVED REPORT Exam: Resting ECG HR:58 bpm ECG Measurements Heart Rate 58 AXES OK 173 P 35 QRSd 90 QRS 52 QT 431 T -71 QTc [address] DEVIATION AND MODERATE T-WAVE ABNORMALITY, CONSIDER ANTEROLATERAL ISCHEMIA [-0.1+ mV T-WAVE IN V3-V6] ST DEVIATION AND MODERATE T-WAVE ABNORMALITY, CONSIDER INFERIOR ISCHEMIA [-0.1+ mV T-WAVE IN II/aVF] ABNORMAL ECG UNCONFIRMED REPORT Electronically signed by : Lm Bravo, 07/10/2024 14:48:28
[2024-07-10 10:28] LABS: Lactate Venous 1.4 mmol/L (0.4-2.0); VBG Base Excess 5.8 mmol/L (-2.4-2.3); VBG HCO3 30.7 mmol/L (23-30); VBG Oxygen Saturation 61.6 % (50-70); VBG PO2 30.9 mmol/L (28-40); VBG Total CO2 32.2 mmol/L (23-27)
[2024-07-10 10:30] LABS: Basophils % 0.8 % (0.1-2.0); Eosinophils % 1.1 % (0.1-12.0); Hematocrit 40.5 % (37.0-47.0); Hemoglobin 13.7 g/dL (12.2-16.2); Lymphocytes % 26.2 % (10-50); Mean Corpuscular HGB Conc 33.8 g/dL (31.8-35.4); Mean Corpuscular Hemoglobin 29.4 pg (27.0-31.2); Mean Corpuscular Volume 86.9 fl (81-99); Mean Platelet Volume 10.2 fl (7.4-10.4); Monocytes # 0.3 K/mm3 (0.1-1.0); Monocytes % 8.1 % (1.7-9.3); Neutrophils # 2.4 K/mm3 (1.8-7.8); Neutrophils % 63.5 % (37.0-80.0); Platelet Count 252 K/mm3 (142-424); Red Blood Count 4.66 M/mm3 (4.20-5.40); Red Cell Distribution Width 15.3 % (11.5-17.5); White Blood Count 3.7 K/mm3 (4.8-10.8)
[2024-07-10 10:30] LABS: VBG PCO2 50.9 mmol/L (35-51)
[2024-07-10 10:38] LABS: Ammonia < 9 umol/L (9-30); Lactic Acid 1.6 mmol/L (0.7-2.1)
[2024-07-10 11:11] LABS: Chloride 93 mmol/L (98-107)
[2024-07-10 11:12] LABS: Albumin Level 3.9 g/dl (3.5-5.0); Sodium 130 mmol/L (136-145)
[2024-07-10 11:15] LABS: Alanine Aminotransferase 20 U/L (12-78); Albumin/Globulin Ratio 1.9 (1.1-1.8); Alkaline Phosphatase 61 U/L (38-126); Aspartate Amino Transferase 41 U/L (14-36); Bilirubin,Total 0.9 mg/dl (0.2-1.3); Blood Urea Nitrogen 11 mg/dl (7-17); Carbon Dioxide 34 mmol/L (22.0-30.0); Creatinine Clearance Estimated 31 mL/min (50-200); Estimated Glomerular Filt Rate 40 ml/min (>60); GFR (African American) 48 ML/MIN (>60); Globulin 2.1 g/dL (1.3-3.2); Lipase 50 U/L (23-300); Phosphorous 2.7 mg/dl (2.5-4.5); Potassium 2.4 mmoL/L (3.5-5.1)
[2024-07-10 11:16] LABS: Calcium 8.6 mg/dl (8.4-10.2); Glucose 94 mg/dl (74-100); Magnesium 2.1 mg/dl (1.6-2.3)
[2024-07-10 11:17] LABS: Anion Gap 5.4 mEq/L (5-15)
[2024-07-10 11:21] LABS: INR 1.01 (0.9-1.1); Prothrombin Time 11.3 seconds (10.1-12.5)
[2024-07-10] MEDS: CEFTRIAXONE SODIUM 1 GM in 0.9 % SODIUM CHLORIDE 50 ML IV (11:26)
[2024-07-10] MEDS: POTASSIUM CHLORIDE 20MEQ TAB 40 MEQ PO (11:26)
[2024-07-10 11:27] LABS: Troponin I 0.03 ng/ml (0.00-0.034)
[2024-07-10] MEDS: FLUCONAZOLE 200MG TABLET 200 MG PO (11:27)
[2024-07-10] MEDS: IOPAMIDOL-370 (76%);100ML BOTTLE 75 ML IV (11:36)
[2024-07-10] MEDS: SODIUM CHLORIDE 0.9% 10ML SYR (RAD ONLY) 10 ML IV (11:36)
[2024-07-10] MEDS: KCl 10mEq/100ml 100 ML 100 MEQ IV ×6 (12:19→18:58)
--- NOTE | 2024-07-10 12:47 | PC.NURSE ---
DR MCBRIDE SPEAKING WITH DR ASHRAF FOR ADMISSION
--- NOTE | 2024-07-10 13:06 | PC.NURSE ---
hospitalist at bedside
--- NOTE | 2024-07-10 13:34 | PC.NURSE ---
spoke with [facility] for bed request
--- NOTE | 2024-07-10 13:37 | EXP.HP ---
History of Present Illness *Admission Date: 07/10/24 *Reason for visit:: weakness *History of present illness: Ms. Prasad is a 78-year-old female who presented to the ER because of complaint of abdominal discomfort, burning with urination, progressive fatigue and weakness. supplements history as patient is a poor story and. He is concerned as she has been more weak, symptoms have progressed over the past 2 months. She is not eating well and has not pooped in a few days. Denies fever, cough, chest pain or shortness of breath. He is worried that she has something wrong with her kidneys that is not being addressed such as a UTI. Recently treated for UTI 2 weeks ago. Found to have low potassium a few weeks ago and she did not want to stay for treatment. On workup today, potassium is 2.4, sodium 130. Patient quite fatigued. CT of abdomen per my review that shows significant stool burden. Previous urine cultures negative. Patient has normal white count. Medicine consulted for admission and further management of patient's confusion, weakness, hypokalemia. On evaluation, she initially states she does not want to be in the hospital. After much discussion with her and her , decision made to admit for further management. Thyroid panel obtained showing severe hypothyroidism. Discussed with that this could explain patient's constellation of symptoms and worsening fatigue. Patient afebrile, hemodynamically stable. Does repeat herself when asked questions. Forgets that she has already told me different stories about family. Repeated at least 3 different stories 3 times. Concern for short-term memory/recall deficit. Also concern for confabulation, as she denies smoking and states she takes her meds but her labs suggest she does not take her meds that she needs to and her reports she smokes up to a pack a day. [facility] Disclaimer: The information contained in this section may have been updated after the patient was seen, as this information can be updated by other users. Medical History Thyroid disease Depression Anxiety Urinary tract infection Hyperlipidemia Social History Smoking Status: Never smoker alcohol intake: never current occupational status: retired and disabled Travel in the last 8 weeks: None Have you lived/traveled outside [place] in past 30 days?: No Contact w/someone who lives/traveled outside [place] past 30 days?: No Exposure to someone with infectious disease in past 14 days?: No Do you have a fever (greater than 100.4 F or 38 C)?: No Have you tested positive for COVID-19: No Exposed to someone with COVID-19 in past 14 days?: No Do you have a sore throat?: No Do you have a cough?: No Do you have any weakness?: No Are you experiencing any nausea/vomitting?: No Do you have any diarrhea?: No Are you experiencing any unusual bleeding?: No Do you have any muscle aches/pain?: No Do you have any abdominal pain?: No Are you experiencing loss of taste or smell?: No Review of Systems Review of Systems Review of systems (narrative): 14 point review of systems performed, pertinent positives and negatives as per HPI Meds Home Medications and Allergies Home Medications ?Medication ?Instructions ?Recorded ?Confirmed ?Type clonazepam 0.5 mg tablet 0.5 mg PO BID 06/05/24 07/10/24 History levothyroxine 175 mcg tablet 200 mcg PO DAILY 06/05/24 07/10/24 History phenazopyridine 200 mg tablet 200 mg PO Q8H pain 2 days #6 tabs 06/05/24 07/10/24 Rx (Pyridium) acetaminophen 300 mg-codeine 30 mg 1 tab PO TID PRN pelvic pain 07/10/24 07/10/24 History tablet estradiol 0.01% (0.1 mg/gram) 1 applic vaginal WEEKLY 07/10/24 07/10/24 History vaginal cream methenamine hippurate 1 gram tablet 1 g PO BID 07/10/24 07/10/24 History New Prescriptions to Start Prescriptions: Allergies Allergy/AdvReac Type Severity Reaction Status Date / Time No Known Allergies Allergy Verified 07/10/24 09:29 Exam Data for Last 24 hours Vital signs and Labs for Last 24 Hours: Temp Pulse Resp BP Pulse Ox O2 Del Method 98.6 F 58 L 18 146/83 H 96 Room Air 07/10/24 09:24 07/10/24 13:00 07/10/24 13:00 07/10/24 13:00 07/10/24 13:00 07/10/24 10:00 Laboratory Results - last 24 hr 07/10/24 09:40: Urine Color Yellow, Urine Appearance Clear, Urine pH 6.5, Ur Specific [place] 1.010, Urine Protein Negative, Urine Glucose (UA) Negative, Urine Ketones Negative, Urine Blood Negative, Urine Nitrate Positive A, Urine Bilirubin Negative, Urine Urobilinogen 0.2, Ur Leukocyte Esterase 1+ A, Urine RBC None, Urine WBC 5-10, Ur Squamous Epith Cells Occasional, Urine Bacteria Trace, Urine Yeast Occasional 07/10/24 10:20: WBC 3.7 L, RBC 4.66, Hgb 13.7, Hct 40.5, MCV 86.9, MCH 29.4, MCHC 33.8, RDW 15.3, Plt Count 252, MPV 10.2, Neut % (Auto) 63.5, Lymph % (Auto) 26.2, [place] % (Auto) 8.1, Eos % (Auto) 1.1, Baso % (Auto) 0.8, Neut # (Auto) 2.4, Lymph # (Auto) 1.0, [place] # (Auto) 0.3, Eos # (Auto) 0.0, Baso # (Auto) 0.0, Lactate 1.6, Ammonia < 9 L 07/10/24 10:23: VBG pH 7.40, VBG pCO2 50.9, VBG pO2 30.9, VBG HCO3 30.7 H, VBG Total CO2 32.2 H, VBG O2 Saturation 61.6, VBG Base Excess 5.8 H, VBG Lactic Acid 1.4 07/10/24 10:57: PT 11.3, INR 1.01, Sodium 130 L, Potassium 2.4 L*, Chloride 93 L, Carbon Dioxide 34 H, Anion Gap 5.4, BUN 11, Creatinine 1.30 H, Estimated Creat Clear 31, Estimated GFR 40 L, Est GFR ( Amer) 48 L, Glucose 94, Calcium 8.6, Phosphorus 2.7, Magnesium 2.1, Total Bilirubin 0.9, AST 41 H, ALT 20, Alkaline Phosphatase 61, Troponin I 0.03, Total Protein 6.0 L, Albumin 3.9, Globulin 2.1, Albumin/Globulin Ratio 1.9 H, Lipase 50 I & O for Last 24 hours: Intake & Output 07/07/24 07/08/24 07/09/24 07/10/24 23:59 23:59 23:59 23:59 Weight 54.431 kg Constitutional Constitutional: no acute distress, average body habitus, chronically ill appearing and cooperative *Routine HEENT Exam Head: Present normocephalic and atraumatic Eye: Present EOMI and PERRL ENT: Present mucous membranes moist *Routine Neck Exam Neck: Present supple *Routine Respiratory Exam Respiratory: Present rhonchi and normal respiratory effort; Absent wheezes, crackles or distant breath sounds *Routine Cardiovascular Exam Cardiovascular: Present RRR *Routine Abdominal Exam Abdominal: Present soft, normoactive bowel sounds and tenderness (Minimal, nonfocal); Absent distended, rebound or guarding *Routine Rectal Exam Rectal:: deferred *Routine Genitalia Exam Genitalia:: deferred *Routine Extremities Exam Extremities: Absent cyanosis, clubbing or edema *Routine Skin Exam Skin: Present intact and dry; Absent cyanosis or erythema *Routine Neurological Exam Neurological: Present alert, CN II-XII intact and moving all extremities Comments: Patient oriented to self, repeated herself multiple times when giving history. Aware she is in the hospital. States she just feels tired and her belly hurts Routine Psychiatric Exam Psychiatric: Present cooperative and depressed; Absent good insight Assessment and Plan *Assessment and plan (1) Severe hypothyroidism: Status: Acute Category: Medical Code(s): E03.9 - Hypothyroidism, unspecified (2) Acute hypokalemia: Status: Acute Category: Medical Code(s): E87.6 - Hypokalemia (3) Constipation: Status: Acute Category: Medical Code(s): K59.00 - Constipation, unspecified (4) Vaginal yeast infection: Status: Acute Category: Medical Code(s): B37.31 - Acute candidiasis of vulva and vagina (5) Generalized weakness: Status: Acute Category: Medical Code(s): R53.1 - Weakness (6) Encephalopathy: Status: Acute Qualifiers: Encephalopathy type: metabolic Qualified Code(s): G93.41 - Metabolic encephalopathy Category: Medical Code(s): G93.40 - Encephalopathy, unspecified (7) Acute hyponatremia: Status: Acute Category: Medical Code(s): E87.1 - Hypo-osmolality and hyponatremia Plan 78-year-old female with hypothyroid, tobacco use disorder recurrent UTI, depression who presents with worsening confusion over 2 months. Known to have hyponatremia and hypokalemia. Thyroid labs show severe hypothyroidism. Imaging with constipation. Discussed case with ER physician, request admission for further treatment and workup of her weakness and confusion. I agreed to admit for treatment of her electrolytes and management of thyroid. Patient found to have severe hypothyroidism with TSH greater than 155, T4 0.6 and free T4 0.2. High risk for decompensation and myxedema coma. Necessitating inpatient care. Initiating IV levothyroxine and oral liothyronine. Problems addressed as follows: Severe hypothyroidism Metabolic encephalopathy -Patient reportedly takes 200 mcg levothyroxine at home. is not sure she takes her medications. TSH 162 on thyroid panel, T4.6, free T4.2. Concern for severe hypothyroidism. Risk for myxedema coma. Will initiate 200 mcg IV levothyroxine today followed by 150 mcg daily. Initiate 20 mcg liothyronine once today followed by 5 mcg every 8 hours for the next 3 days. -Will monitor on telemetry for risk for bradycardia or arrhythmias. -Symptoms of fatigue, slowed cognition, depression, electrolyte disturbances, and constipation along with poor appetite, will be attributed to her thyroid disorder. -Monitor for improvement in mentation. Will consider therapy eval over the coming days pending response to thyroid hormone -CT head with age-related changes. No focal findings or mass effect. Low concern for stroke Hyponatremia Hypokalemia -Sodium 130, potassium 2.4. Magnesium 2.1 and phosphorus 2.7. Aggressively replacing potassium both IV and oral. -Will monitor for improvement in electrolytes with repeat BMP this afternoon. Repeat CBC, CMP, magnesium ordered for the morning. -Electrolyte protocol ordered Dysuria Candidal vaginitis -Findings consistent with yeast infection. Recently treated for UTI. Urine cultures have returned negative on previous evaluations. Suspect symptoms related to patient's constipation or yeast. Received fluconazole 200 mg once in the ED, will continue miconazole topical cream daily for 7 days - White count low at 3.7, hemoglobin 13.7. No neutrophil predominance. Will hold on any antibiotics at this time unless symptoms change or urine culture returned positive. Constipation: Per my review of CT of abdomen, has significant stool burden. Initiate aggressive bowel regimen. MiraLAX every 4 hours x 4 doses. Initiate docusate senna 2 capsules twice daily until having bowel movements. Will administer mineral oil enema. Monitor for improvement abdominal symptoms. Depressed mood: Weakness: - Initiate citalopram 10 mg daily. Monitor for improvement with treatment of hypothyroid. On Klonopin 0.5 mg twice daily. Speech slurred on exam. Will continue 0.25 mg twice daily as needed for severe anxiety or withdrawal symptoms. -PT and OT to evaluate for dispo planning. Tobacco use disorder: Nicotine patch 21 mg daily as needed Full code Regular diet Lovenox 40 mg subcu daily
--- NOTE | 2024-07-10 13:45 | PC.NURSE ---
pt up to bedside commode
[2024-07-10] MEDS: MINERAL OIL ENEMA 133ML 133 ML RC (15:04)
[2024-07-10] MEDS: SENNOSIDES 8.6MG/DOCUSATE 50MG TABLET 2 TAB PO (15:04)
[2024-07-10] MEDS: LIOTHYRONINE 5 MCG 4 EACH PO (15:05)
[2024-07-10] MEDS: POLYETHYLENE GLYCOL 3350 17 GM PACKET PO ×2 (15:05→21:17)
[2024-07-10] MEDS: LEVOTHYROXINE SODIUM 100 MCG VIAL 200 MCG IV (15:05)
[2024-07-10 15:43] LABS: Troponin I 0.03 ng/ml (0.00-0.034)
[2024-07-10 15:52] LABS: Triiodothryronine (T3) Uptake 25 % (23.5-40.5)
--- NOTE | 2024-07-10 15:52 | PC.NURSE ---
i verified with hospitalist that he did want 6 bags of potassium total. currently infusing.
[2024-07-10 15:53] LABS: Free Thyroxine Index 0.2 ug/dL (5.93-13.13); T4 (Thyroxine) 0.6 ug/dl (5.53-11.0)
[2024-07-10 17:43] LABS: Troponin I 0.03 ng/ml (0.00-0.034)
--- NOTE | 2024-07-10 18:31 | PC.NURSE ---
i bladder scanned pt due to being unable to void @ this time. 250 ml noted. i spoke with MD. he wants to hold off on cathing pt in hopes she will be able to go independently. no BM either despite intervention
[2024-07-10 20:38] LABS: Anion Gap 6.6 mEq/L (5-15); Blood Urea Nitrogen 10 mg/dl (7-17); Calcium 8.3 mg/dl (8.4-10.2); Carbon Dioxide 31 mmol/L (22.0-30.0); Chloride 95 mmol/L (98-107); Creatinine Clearance Estimated 46 mL/min (50-200); Estimated Glomerular Filt Rate 54 ml/min (>60); GFR (African American) 65 ML/MIN (>60); Glucose 116 mg/dl (74-100); Potassium 3.6 mmoL/L (3.5-5.1); Sodium 129 mmol/L (136-145)
[2024-07-10] MEDS: MICONAZOLE NITRATE VG (21:17)
[2024-07-10] MEDS: clonazePAM 0.5MG TABLET 0.25 MG PO (21:18)
[2024-07-11] VITALS (8 sets, daily range): BP systolic 107–126; BP diastolic 61–81; PULSE 50–69; RESP 16–17; TEMP 36.4–36.8; O2SAT 90–97; BMI 24.1
--- NOTE | 2024-07-11 05:10 | PC.NURSE ---
v/s, family at bedside overnight. Pt is alert to self and place, and occasionally time. No acute events to report. Plan of care ongoing.
[2024-07-11] MEDS: LEVOTHYROXINE SODIUM 100 MCG VIAL 150 MCG IV (08:07)
[2024-07-11] MEDS: ENOXAPARIN 40MG/0.4ML SYRINGE 40 MG SUBCUT (08:08)
[2024-07-11] MEDS: CITALOPRAM 10MG TABLET 10 MG PO (08:08)
--- NOTE | 2024-07-11 10:26 | P.PN_ITS ---
Subjective *Date: 07/11/24 *Time: 11:13 Interval history: Patient more pleasant this morning. Interactive. Family at bedside. Stable on room air. Ate some breakfast. No nausea or vomiting. Hemodynamically stable. Medical Exam Vital signs and Labs for Last 24 Hours: Vital Signs Temp Pulse Pulse Resp BP BP Pulse Ox 07/11/24 09:54 07/11/24 08:22 07/11/24 08:00 07/11/24 08:00 98.1 F 60 16 107/63 L 90 L 07/11/24 06:25 07/11/24 05:00 07/11/24 04:49 97.7 F 54 L 16 113/69 95 07/11/24 04:00 50 L 07/11/24 03:00 07/11/24 01:00 07/11/24 00:00 97.7 F 69 16 113/61 93 L 07/11/24 00:00 60 07/10/24 23:00 07/10/24 20:23 98.1 F 61 16 120/90 92 L 07/10/24 20:20 07/10/24 20:00 70 07/10/24 19:33 07/10/24 17:00 07/10/24 16:00 97.7 F 60 16 138/78 94 L 07/10/24 14:20 98.1 F 67 18 133/87 90 L 07/10/24 14:11 07/10/24 13:50 98.6 F 58 L 18 135/85 07/10/24 13:31 54 L 18 131/87 96 07/10/24 13:15 55 L 16 147/87 H 95 07/10/24 13:00 58 L 18 146/83 H 96 07/10/24 12:45 57 L 18 147/84 H 96 07/10/24 12:31 58 L 18 138/87 97 07/10/24 12:16 56 L 18 123/83 94 L 07/10/24 12:03 57 L 18 129/75 98 07/10/24 10:00 65 17 126/77 95 07/10/24 09:45 68 21 121/80 95 07/10/24 09:40 69 132/84 95 O2 Del Method 07/11/24 09:54 Room Air 07/11/24 08:22 Room Air 07/11/24 08:00 Room Air 07/11/24 08:00 Room Air 07/11/24 06:25 Room Air 07/11/24 05:00 Room Air 07/11/24 04:49 Room Air 07/11/24 04:00 07/11/24 03:00 Room Air 07/11/24 01:00 Room Air 07/11/24 00:00 Room Air 07/11/24 00:00 07/10/24 23:00 Room Air 07/10/24 20:23 Room Air 07/10/24 20:20 Room Air 07/10/24 20:00 07/10/24 19:33 Room Air 07/10/24 17:00 Room Air 07/10/24 16:00 Room Air 07/10/24 14:20 Room Air 07/10/24 14:11 Room Air 07/10/24 13:50 Room Air 07/10/24 13:31 Room Air 07/10/24 13:15 Room Air 07/10/24 13:00 07/10/24 12:45 07/10/24 12:31 07/10/24 12:16 07/10/24 12:03 07/10/24 10:00 Room Air 07/10/24 09:45 Room Air 07/10/24 09:40 Room Air Intake and Output 07/10/24 07/11/24 07/11/24 23:59 08:59 15:59 Intake Total 360 / 360 120 / 120 Output Total 200 / 200 Balance 160 / 160 120 / 120 Intake: Intake, Oral Amount 360 / 360 120 / 120 Output: Output, Urine Amount 200 / 200 Other: Weight 61.802 kg Patient Weight 07/12/24 00:59 Weight 61.802 kg Laboratory Results - last 24 hr 07/10/24 09:40: Urine Color Yellow, Urine Appearance Clear, Urine pH 6.5, Ur Specific [place] 1.010, Urine Protein Negative, Urine Glucose (UA) Negative, Urine Ketones Negative, Urine Blood Negative, Urine Nitrate Positive A, Urine Bilirubin Negative, Urine Urobilinogen 0.2, Ur Leukocyte Esterase 1+ A, Urine RBC None, Urine WBC 5-10, Ur Squamous Epith Cells Occasional, Urine Bacteria Trace, Urine Yeast Occasional 07/10/24 10:20: WBC 3.7 L, RBC 4.66, Hgb 13.7, Hct 40.5, MCV 86.9, MCH 29.4, MCHC 33.8, RDW 15.3, Plt Count 252, MPV 10.2, Neut % (Auto) 63.5, Lymph % (Auto) 26.2, [place] % (Auto) 8.1, Eos % (Auto) 1.1, Baso % (Auto) 0.8, Neut # (Auto) 2.4, Lymph # (Auto) 1.0, [place] # (Auto) 0.3, Eos # (Auto) 0.0, Baso # (Auto) 0.0, Lactate 1.6, Ammonia < 9 L 07/10/24 10:23: VBG pH 7.40, VBG pCO2 50.9, VBG pO2 30.9, VBG HCO3 30.7 H, VBG Total CO2 32.2 H, VBG O2 Saturation 61.6, VBG Base Excess 5.8 H, VBG Lactic Acid 1.4 07/10/24 10:57: PT 11.3, INR 1.01, Sodium 130 L, Potassium 2.4 L*, Chloride 93 L , Carbon Dioxide 34 H, Anion Gap 5.4, BUN 11, Creatinine 1.30 H, Estimated Creat Clear 31, Estimated GFR 40 L, Est GFR ( Amer) 48 L, Glucose 94, Calcium 8.6, Phosphorus 2.7, Magnesium 2.1, Total Bilirubin 0.9, AST 41 H, ALT 20, Alkaline Phosphatase 61, Troponin I 0.03, Total Protein 6.0 L, Albumin 3.9, Globulin 2.1, Albumin/Globulin Ratio 1.9 H, Lipase 50, TSH 155.00 H 07/10/24 14:40: Troponin I 0.03, TSH 162.00 H, Free T4 Index 0.2 L, Thyroxine (T4) 0.6 L, T3 Uptake 07/10/24 17:00: Troponin I 0.03 07/10/24 20:00: Sodium 129 L, Potassium 3.6 D, Chloride 95 L, Carbon Dioxide 31 H, Anion Gap 6.6, BUN 10, Creatinine 1.00 D, Estimated Creat Clear 46, Estimated GFR 54 L, Est GFR ( Amer) 65 D, Glucose 116 H D, Calcium 8.3 L I & O for Labs for Last 24 Hours: Intake & Output 07/08/24 07/09/24 07/10/24 07/12/24 23:59 23:59 23:59 00:59 Intake Total 360 / 360 120 / 120 Output Total 200 / 200 Balance 160 / 160 120 / 120 Weight 61.802 kg 61.802 kg Constitutional: Present no acute distress, average body habitus, chronically ill appearing and cooperative Head: Present atraumatic and normocephalic ENT: Present normal exam Respiratory: Present CTA bilaterally and normal respiratory effort; Absent respiratory distress, rhonchi, stridor, wheezes or crackles Cardiac: Present Reg Rate and Rhythm GI: Present soft, tenderness (Nonfocal, minimal) and normal bowel sounds; Absent distention, guarding or rebound Extremities: Present normal inspection and full ROM; Absent edema Skin: Present intact; Absent erythema Neuro: Present Grossly Intact, alert, awake, oriented x 3 and moves all extremities Comment:: Knows who she is, her date of , that she is at the hospital. Answers not repetitive today. Assessment and Plan *Assessment and plan (1) Severe hypothyroidism: Status: Acute Category: Medical Code(s): E03.9 - Hypothyroidism, unspecified (2) Acute hypokalemia: Status: Acute Category: Medical Code(s): E87.6 - Hypokalemia (3) Constipation: Status: Acute Category: Medical Code(s): K59.00 - Constipation, unspecified (4) Vaginal yeast infection: Status: Acute Category: Medical Code(s): B37.31 - Acute candidiasis of vulva and vagina (5) Generalized weakness: Status: Acute Category: Medical Code(s): R53.1 - Weakness (6) Encephalopathy: Status: Acute Qualifiers: Encephalopathy type: metabolic Qualified Code(s): G93.41 - Metabolic encephalopathy Category: Medical Code(s): G93.40 - Encephalopathy, unspecified (7) Acute hyponatremia: Status: Acute Category: Medical Code(s): E87.1 - Hypo-osmolality and hyponatremia Plan 78-year-old female with hypothyroid, tobacco use disorder recurrent UTI, depression who presents with worsening confusion over 2 months. Known to have hyponatremia and hypokalemia. Thyroid labs show severe hypothyroidism. Imaging with constipation. Discussed case with ER physician, request admission for further treatment and workup of her weakness and confusion. I agreed to admit for treatment of her electrolytes and management of thyroid. Patient found to have severe hypothyroidism with TSH greater than 155, T4 0.6 and free T4 0.2. High risk for decompensation and myxedema coma. Necessitating inpatient care. Initiating IV levothyroxine and oral liothyronine. Problems addressed as follows: Severe hypothyroidism Metabolic encephalopathy -Patient reportedly takes 200 mcg levothyroxine at home. brought bottle in today. It contains 90 tablets that were prescribed on 06/18/2024. Appears she is not taking her medications. - TSH 162 on thyroid panel, T4 0.6, free T4 0.2. Concern for severe hypothyroidism. Risk for myxedema coma. Showing some improvement in mentation today -Continue IV levothyroxine 150 mcg daily, continue liothyronine 5 mg every 8 hours. -Will monitor on telemetry for risk for bradycardia or arrhythmias. -Symptoms of fatigue, slowed cognition, depression, electrolyte disturbances, and constipation along with poor appetite, will be attributed to her thyroid disorder. -PT and OT ordered for the morning -CT head with age-related changes. No focal findings or mass effect. Low concern for stroke - Repeat thyroid panel, CBC, CMP, magnesium, lipid panel ordered for the morning Hyponatremia Hypokalemia -Electrolytes improving, Sodium 133, potassium 3.4, chloride 97. Kidney function normal with BUN 8, creatinine 1.1. Calcium 8.7. -Continue potassium replacement orally today per electrolyte protocol. Dysuria Candidal vaginitis -Findings consistent with yeast infection. Recently treated for UTI. Urine cultures have returned negative on previous evaluations. Suspect symptoms related to patient's constipation or yeast. Received fluconazole 200 mg once in the ED, will continue miconazole topical cream daily for 7 days -White count normal at 4.6, hemoglobin normal at 14.6. No neutrophil predominance. Will hold on any further antibiotics at this time unless symptoms change or urine culture returned positive. Constipation: Per my review of CT of abdomen, has significant stool burden. Initiate aggressive bowel regimen. -Has received 4 doses of MiraLAX, continuing docusate senna 2 capsules twice daily. Initiate 10 ounces of magnesium citrate. If no bowel movement by this evening, will administer oral mineral oil -Had no response with mineral oil enema yesterday -Is passing gas and feeling some movement Depressed mood: Weakness: - Initiated citalopram 10 mg daily. Monitor for improvement with treatment of hypothyroid. -Continue Klonopin at half home dose of 0.25 mg twice daily. Ordered as needed to better monitor mentation and decrease risk for inadvertent oversedation Tobacco use disorder: Nicotine patch 21 mg daily as needed Full code Regular diet Lovenox 40 mg subcu daily
[2024-07-11 10:27] LABS: Basophils % 0.9 % (0.1-2.0); Eosinophils # 0.1 K/mm3 (0.0-0.4); Eosinophils % 1.3 % (0.1-12.0); Hematocrit 42.7 % (37.0-47.0); Hemoglobin 14.6 g/dL (12.2-16.2); Lymphocytes # 1.4 K/mm3 (0.7-4.5); Lymphocytes % 29.3 % (10-50); Mean Corpuscular HGB Conc 34.2 g/dL (31.8-35.4); Mean Corpuscular Hemoglobin 29.6 pg (27.0-31.2); Mean Corpuscular Volume 86.4 fl (81-99); Mean Platelet Volume 10.7 fl (7.4-10.4); Monocytes # 0.4 K/mm3 (0.1-1.0); Monocytes % 9.1 % (1.7-9.3); Neutrophils # 2.7 K/mm3 (1.8-7.8); Neutrophils % 59.2 % (37.0-80.0); Platelet Count 265 K/mm3 (142-424); Red Blood Count 4.94 M/mm3 (4.20-5.40); Red Cell Distribution Width 15.7 % (11.5-17.5); White Blood Count 4.6 K/mm3 (4.8-10.8)
[2024-07-11 10:29] LABS: Albumin Level 3.8 g/dl (3.5-5.0); Chloride 97 mmol/L (98-107); Potassium 3.4 mmoL/L (3.5-5.1); Sodium 133 mmol/L (136-145)
[2024-07-11 10:32] LABS: Alanine Aminotransferase 22 U/L (12-78); Albumin/Globulin Ratio 1.8 (1.1-1.8); Alkaline Phosphatase 75 U/L (38-126); Anion Gap 6.4 mEq/L (5-15); Aspartate Amino Transferase 50 U/L (14-36); Bilirubin,Total 0.8 mg/dl (0.2-1.3); Blood Urea Nitrogen 8 mg/dl (7-17); Calcium 8.7 mg/dl (8.4-10.2); Carbon Dioxide 33 mmol/L (22.0-30.0); Creatinine Clearance Estimated 42 mL/min (50-200); Estimated Glomerular Filt Rate 48 ml/min (>60); GFR (African American) 58 ML/MIN (>60); Globulin 2.1 g/dL (1.3-3.2); Glucose 98 mg/dl (74-100); Magnesium 2.1 mg/dl (1.6-2.3); Total Protein,Serum 5.9 g/dl (6.3-8.2)
[2024-07-11] MEDS: clonazePAM 0.5MG TABLET 0.25 MG PO ×2 (10:41→21:50)
[2024-07-11] MEDS: POTASSIUM CHLORIDE 20MEQ TAB 40 MEQ PO ×2 (11:43→14:37)
[2024-07-11] MEDS: MAGNESIUM CITRATE 10OZ BOTTLE 10 OZ PO (11:44)
[2024-07-11] MEDS: LIOTHYRONINE 5 MCG 1 EACH PO ×2 (12:05→21:18)
--- NOTE | 2024-07-11 14:22 | PC.NURSE ---
Aox 2 with confusion noted, family present, on RA, 22g L FA SL, 20g R AC SL, PT and OT consulted, Regular diet, up with assistance times one.
[2024-07-11] MEDS: MICONAZOLE NITRATE VG (21:18)
[2024-07-12] VITALS: BP 91/55; PULSE 59; RESP 16; O2SAT 90
[2024-07-12 03:54] VITALS: BMI 24.1
--- NOTE | 2024-07-12 05:19 | PC.NURSE ---
Family remain at bedside. Pt complained of bowel movement not coming out much. Pt stated she had a small bowel movement tonight. V/s, pt only alert to self and place. No acute events to report. Plan of care ongoing.
[2024-07-12] MEDS: LIOTHYRONINE 5 MCG 1 EACH PO (06:48)
[2024-07-12 06:51] LABS: Basophils # 0.1 K/mm3 (0-0.2); Basophils % 1.3 % (0.1-2.0); Eosinophils # 0.1 K/mm3 (0.0-0.4); Eosinophils % 2.1 % (0.1-12.0); Hematocrit 37.9 % (37.0-47.0); Lymphocytes # 1.4 K/mm3 (0.7-4.5); Lymphocytes % 37.2 % (10-50); Mean Corpuscular HGB Conc 33.8 g/dL (31.8-35.4); Mean Corpuscular Hemoglobin 29.6 pg (27.0-31.2); Mean Corpuscular Volume 87.5 fl (81-99); Mean Platelet Volume 10.1 fl (7.4-10.4); Monocytes # 0.4 K/mm3 (0.1-1.0); Monocytes % 9.4 % (1.7-9.3); Neutrophils # 1.9 K/mm3 (1.8-7.8); Neutrophils % 49.7 % (37.0-80.0); Platelet Count 222 K/mm3 (142-424); Red Blood Count 4.33 M/mm3 (4.20-5.40); Red Cell Distribution Width 15.8 % (11.5-17.5); White Blood Count 3.8 K/mm3 (4.8-10.8)
[2024-07-12 06:59] LABS: Alanine Aminotransferase 21 U/L (12-78); Albumin Level 3.2 g/dl (3.5-5.0); Albumin/Globulin Ratio 1.7 (1.1-1.8); Alkaline Phosphatase 59 U/L (38-126); Anion Gap 3.4 mEq/L (5-15); Aspartate Amino Transferase 52 U/L (14-36); Bilirubin,Total 0.5 mg/dl (0.2-1.3); Blood Urea Nitrogen 4 mg/dl (7-17); Calcium 8.2 mg/dl (8.4-10.2); Carbon Dioxide 30 mmol/L (22.0-30.0); Chloride 103 mmol/L (98-107); Creatinine Clearance Estimated 46 mL/min (50-200); Estimated Glomerular Filt Rate 54 ml/min (>60); GFR (African American) 65 ML/MIN (>60); Globulin 1.9 g/dL (1.3-3.2); Glucose 79 mg/dl (74-100); HDL Cholesterol 61 mg/dl (40-60); Magnesium 2.3 mg/dl (1.6-2.3); Potassium 4.4 mmoL/L (3.5-5.1); Sodium 132 mmol/L (136-145); Total Protein,Serum 5.1 g/dl (6.3-8.2); Triglycerides 145 mg/dl (30-150); VLDL Cholesterol 29 mg/dL (0-40)
[2024-07-12 07:10] LABS: Direct LDL Cholesterol 183.68 mg/dL (100-129)
[2024-07-12 07:38] LABS: Chol/HDL Ratio 6.1 (1-3.5); Cholesterol 370 mg/dl (140-200)
[2024-07-12 07:57] LABS: Hemoglobin 12.8 g/dL (12.2-16.2)
[2024-07-12 08:00] VITALS: BP 123/73; PULSE 71; RESP 18; TEMP 36.8; O2SAT 91
--- NOTE | 2024-07-12 08:15 | EXP.DC.SUM ---
General Admission date:: 07/10/24 Discharge date: 07/12/24 HPI HPI HPI: Ms. Prasad is a 78-year-old female who presented to the ER because of complaint of abdominal discomfort, burning with urination, progressive fatigue and weakness. supplements history as patient is a poor story and. He is concerned as she has been more weak, symptoms have progressed over the past 2 months. She is not eating well and has not pooped in a few days. Denies fever, cough, chest pain or shortness of breath. He is worried that she has something wrong with her kidneys that is not being addressed such as a UTI. Recently treated for UTI 2 weeks ago. Found to have low potassium a few weeks ago and she did not want to stay for treatment. On workup today, potassium is 2.4, sodium 130. Patient quite fatigued. CT of abdomen per my review that shows significant stool burden. Previous urine cultures negative. Patient has normal white count. Medicine consulted for admission and further management of patient's confusion, weakness, hypokalemia. On evaluation, she initially states she does not want to be in the hospital. After much discussion with her and her , decision made to admit for further management. Thyroid panel obtained showing severe hypothyroidism. Discussed with that this could explain patient's constellation of symptoms and worsening fatigue. Patient afebrile, hemodynamically stable. Does repeat herself when asked questions. Forgets that she has already told me different stories about family. Repeated at least 3 different stories 3 times. Concern for short-term memory/recall deficit. Also concern for confabulation, as she denies smoking and states she takes her meds but her labs suggest she does not take her meds that she needs to and her reports she smokes up to a pack a day. Hospital Course Hospital Course Hospital Course: 78-year-old female with hypothyroid, tobacco use disorder recurrent UTI, depression who presents with worsening confusion over 2 months. Known to have hyponatremia and hypokalemia. Thyroid labs show severe hypothyroidism. Imaging with constipation. Discussed case with ER physician, request admission for further treatment and workup of her weakness and confusion. I agreed to admit for treatment of her electrolytes and management of thyroid. Patient found to have severe hypothyroidism with TSH of 162 on admission, T4 0.6 and free T4 0.2. High risk for decompensation and myxedema coma. Necessitating inpatient care. Initiating IV levothyroxine and oral liothyronine. Showed some improvement in mentation and remained hemodynamically stable. Stable discharge home to continue treatment with observed therapy with her making sure she is taking her oral levothyroxine daily. Needs close follow-up for repeat lab levels. Problems addressed as follows: Severe hypothyroidism Metabolic encephalopathy -Presented with constipation, fatigue, depression, weakness, confusion, change in appetite. Symptoms most likely related to severe hypothyroidism. Labs showed severe abnormalities with TSH 162, T4 of 0.6, free T4 of 0.2. Initiated on IV levothyroxine and liothyronine. brought in patient's bottle of levothyroxine that was filled 3 weeks ago, still has all 90 tablets. Appears that she is not taking her medications even though she says she is. She is repetitive with her answers and tangential. Concerned that she does not know what she is taking and is having short-term memory impairment. This could very well be from her benzodiazepines or severe hypothyroid, or early dementia. Recommend continuing to address metabolic issue prior to formal diagnosis or cognitive testing. Showing some improvement with initiation of levothyroxine IV. Will continue 200 mcg at discharge. Instructed to observe her take it in the mornings prior to other medications and food. Would benefit from following with design studio consultant. -PT and OT evaluated, patient at baseline level of physical activity. Has family to assist as well including her and daughter. Stable to discharge home. CT head obtained with age-related changes but no focal findings or mass effect. Low concern for stroke. Repeated thyroid levels prior to discharge showed improvement in T4 and free T4 though still low. Given her clinical stability, stable to discharge home with close outpatient follow-up. Hyponatremia Hypokalemia -Electrolytes abnormalities likely related to her hypothyroid. Sodium showing improvement. In low 130s by day of discharge. Kidney function normal with BUN 4, creatinine 1.0. Potassium 4.4 magnesium 2.3. Dysuria Candidal vaginitis -Findings consistent with yeast infection. Recently treated for UTI. Urine cultures have returned negative on previous evaluations. Suspect symptoms related to patient's constipation or yeast. Received fluconazole 200 mg once in the ED, will continue miconazole topical cream daily for 7 days. White count remained normal during admission. No further antibiotics indicated at this time. Referred to gynecology as an outpatient for further evaluation and management. Continuing topical estradiol. Constipation: Per my review of CT of abdomen, has significant stool burden. Initiated aggressive bowel regimen. Had multiple bowel movements. Bili feeling somewhat better after bowel movement. Continue bowel regimen at home with goal of 1-2 soft stools a day. Anticipate some improvement with improvement in her hypothyroid. Encouraged fiber and water intake as well to promote normal bowel movements Depressed mood/Weakness: - Initiated citalopram 10 mg daily. Monitor for improvement with treatment of hypothyroid. Continue Klonopin at half home dose of 0.25 mg twice daily. Administered as needed during admission. Would strongly encourage continuing lower dose if not trying to wean as an outpatient due to increased risk for dementia and side effects as an outpatient in the long-term setting. Tobacco use disorder: Nicotine patch 21 mg daily as needed Total time spent on discharge 35 minutes in counseling, documentation, chart review, and direct care with patient. Exam Data for Last 24 hours Vital signs and Labs for Last 24 Hours: Temp Pulse Resp BP Pulse Ox O2 Del Method 97.6 F 59 L 16 91/55 L 90 L Room Air 07/11/24 20:26 07/12/24 00:00 07/12/24 00:00 07/12/24 00:00 07/12/24 00:00 07/12/24 07:56 Laboratory Results - last 24 hr 07/11/24 10:03: WBC 4.6 L, RBC 4.94, Hgb 14.6, Hct 42.7, MCV 86.4, MCH 29.6, MCHC 34.2, RDW 15.7, Plt Count 265, MPV 10.7 H, Neut % (Auto) 59.2, Lymph % (Auto) 29.3, Sutton % (Auto) 9.1, Eos % (Auto) 1.3, Baso % (Auto) 0.9, Neut # (Auto) 2.7, Lymph # (Auto) 1.4, Sutton # (Auto) 0.4, Eos # (Auto) 0.1, Baso # (Auto) 0.0, Sodium 133 L, Potassium 3.4 L, Chloride 97 L, Carbon Dioxide 33 H, Anion Gap 6.4, BUN 8, Creatinine 1.10 H, Estimated Creat Clear 42, Estimated GFR 48 L, Est GFR ( Amer) 58 L, Glucose 98, Calcium 8.7, Magnesium 2.1, Total Bilirubin 0.8, AST 50 H, ALT 22, Alkaline Phosphatase 75, Total Protein 5.9 L, Albumin 3.8, Globulin 2.1, Albumin/Globulin Ratio 1.8 07/12/24 06:04: WBC 3.8 L, RBC 4.33, Hgb 12.8 D, Hct 37.9, MCV 87.5, MCH 29.6, MCHC 33.8, RDW 15.8, Plt Count 222, MPV 10.1, Neut % (Auto) 49.7, Lymph % (Auto) 37.2, Sutton % (Auto) 9.4 H, Eos % (Auto) 2.1, Baso % (Auto) 1.3, Neut # (Auto) 1.9, Lymph # (Auto) 1.4, Sutton # (Auto) 0.4, Eos # (Auto) 0.1, Baso # (Auto) 0.1, Sodium 132 L, Potassium 4.4 D, Chloride 103, Carbon Dioxide 30, Anion Gap 3.4 L, BUN 4 L D, Creatinine 1.00, Estimated Creat Clear 46, Estimated GFR 54 L, Est GFR ( Amer) 65, Glucose 79, Calcium 8.2 L, Magnesium 2.3, Total Bilirubin 0.5, AST 52 H, ALT 21, Alkaline Phosphatase 59, Total Protein 5.1 L, Albumin 3.2 L D, Globulin 1.9, Albumin/Globulin Ratio 1.7, Triglycerides 145, Cholesterol 370 H, LDL Cholesterol Direct 183.68 H, VLDL Cholesterol 29, HDL Cholesterol 61 H, Cholesterol/HDL Ratio 6.1 H I & O for Last 24 hours: Intake & Output 07/09/24 07/10/24 07/12/24 07/12/24 23:59 23:59 00:59 23:59 Intake Total 360 / 360 1020 / 1020 Output Total 200 / 200 150 / 150 Balance 160 / 160 870 / 870 Weight 61.802 kg 61.802 kg 61.802 kg Constitutional Constitutional: no acute distress, average body habitus, chronically ill appearing and cooperative *Routine HEENT Exam Head: Present normocephalic Eye: Present EOMI and PERRL ENT: Present mucous membranes moist *Routine Neck Exam Neck: Present supple; Absent lymphadenopathy *Routine Respiratory Exam Respiratory: Present CTA bilaterally; Absent rhonchi, wheezes or crackles *Routine Cardiovascular Exam Cardiovascular: Present RRR *Routine Abdominal Exam Abdominal: Present soft, normoactive bowel sounds and tenderness (minimal, non-focal lower abdomen) *Routine Rectal Exam Patient deferred: visual exam *Routine Exam Patient deferred: external exam *Routine Extremities Exam Extremities: Absent cyanosis, clubbing or edema *Routine Skin Exam Skin: Present intact and warm; Absent rash *Routine Neurological Exam Neurological: Present alert, oriented X3 and moving all extremities; Absent altered mental status Routine Psychiatric Exam Psychiatric: Present normal affect Comments: improved orientation, thought less repetitive and tangential. Results Data Completed and Pending Labs on day of discharge: Labs from last 24 hours 07/12/24 07/11/24 06:04 10:03 WBC 3.8 L 4.6 L RBC 4.33 4.94 Hgb 12.8 D 14.6 Hct 37.9 42.7 MCV 87.5 86.4 MCH 29.6 29.6 MCHC 33.8 34.2 RDW 15.8 15.7 Plt Count 222 265 MPV 10.1 10.7 H Neut % (Auto) 49.7 59.2 Lymph % (Auto) 37.2 29.3 Sutton % (Auto) 9.4 H 9.1 Eos % (Auto) 2.1 1.3 Baso % (Auto) 1.3 0.9 Neut # (Auto) 1.9 2.7 Lymph # (Auto) 1.4 1.4 Sutton # (Auto) 0.4 0.4 Eos # (Auto) 0.1 0.1 Baso # (Auto) 0.1 0.0 Sodium 132 L 133 L Potassium 4.4 D 3.4 L Chloride 103 97 L Carbon Dioxide 30 33 H Anion Gap 3.4 L 6.4 BUN 4 L D 8 Creatinine 1.00 1.10 H Estimated Creat Clear 46 42 Estimated GFR 54 L 48 L Est GFR ( Amer) 65 58 L Glucose 79 98 Calcium 8.2 L 8.7 Magnesium 2.3 2.1 Total Bilirubin 0.5 0.8 AST 52 H 50 H ALT 21 22 Alkaline Phosphatase 59 75 Total Protein 5.1 L 5.9 L Albumin 3.2 L D 3.8 Globulin 1.9 2.1 Albumin/Globulin Ratio 1.7 1.8 Triglycerides 145 Cholesterol 370 H LDL Cholesterol Direct 183.68 H VLDL Cholesterol 29 HDL Cholesterol 61 H Cholesterol/HDL Ratio 6.1 H DS: Diagnosis Discharge Diagnosis (1) Severe hypothyroidism: Status: Acute Code(s): E03.9 - Hypothyroidism, unspecified (2) Acute hypokalemia: Status: Resolved Code(s): E87.6 - Hypokalemia (3) Constipation: Status: Acute Code(s): K59.00 - Constipation, unspecified (4) Vaginal yeast infection: Status: Acute Code(s): B37.31 - Acute candidiasis of vulva and vagina (5) Generalized weakness: Status: Acute Code(s): R53.1 - Weakness (6) Encephalopathy: Status: Acute Code(s): G93.40 - Encephalopathy, unspecified Qualifiers: Encephalopathy type: metabolic Qualified Code(s): G93.41 - Metabolic encephalopathy (7) Acute hyponatremia: Status: Resolved Code(s): E87.1 - Hypo-osmolality and hyponatremia Meds Home Medications and Allergies Home Medications ?Medication ?Instructions ?Recorded ?Confirmed ?Type levothyroxine 175 mcg tablet 200 mcg PO DAILY 06/05/24 07/10/24 History estradiol 0.01% (0.1 mg/gram) 1 applic vaginal .THREE TIMES 07/10/24 07/11/24 History vaginal cream WEEKLY methenamine hippurate 1 gram tablet 1 g PO BID 07/10/24 07/10/24 History atorvastatin 20 mg tablet 20 mg PO HS 30 days #30 tabs 07/12/24 Rx citalopram 10 mg tablet 10 mg PO DAILY 30 days #30 tabs 07/12/24 Rx clonazepam 0.5 mg tablet 0.25 mg (1/2 x 0.5 mg) PO BID PRN 07/12/24 07/10/24 Rx Anxiety 30 days #0 tabs miconazole nitrate 2 % vaginal 1 appful vaginal HS #0 grams 07/12/24 Rx cream polyethylene glycol 3350 17 gram 17 g PO DAILY PRN Constipation 30 07/12/24 Rx oral powder packet (HealthyLax) days #30 ea New Prescriptions to Start Prescriptions: Lm Berry citalopram Lm Mccauley polyethylene glycol 3350 [HealthyLax] Lm Mccauley Allergies Allergy/AdvReac Type Severity Reaction Status Date / Time No Known Allergies Allergy Verified 07/10/24 09:29 Discharge Plan Disposition Patient Disposition: Home, Self-Care Condition: Fair Discharge Order Discharge Orders: Discharge Order (Routine); Ordered 07/12/24 Ordered By: Lm Mccauley Follow up Plan Follow up with: Serge Andrew MD [Primary Care Provider] - 07/19/24 11:15 am Cesilia Davis DO [Staff Physician] - 08/17/24 1:00 pm (vaginitis, burning, needs eval, wants to see a Female Specialist ) Prescriptions/Medication Reconciliation: New atorvastatin 20 mg Tablet 20 mg PO HS 30 Days Qty: 30 0RF citalopram 10 mg Tablet 10 mg PO DAILY 30 Days Qty: 30 0RF miconazole nitrate 2 % Cream 1 appful vaginal HS Qty: 0 0RF polyethylene glycol 3350 [HealthyLax] 17 gram Powder In Packet 17 g PO DAILY PRN (Reason: Constipation) 30 Days Qty: 30 0RF Continued levothyroxine 175 mcg tablet 200 mcg PO DAILY Patient Comments: TAKE 1 TABLET BY MOUTH EVERY DAY methenamine hippurate 1 gram tablet 1 g PO BID Patient Comments: TAKE 1 TABLET BY MOUTH TWICE DAILY estradiol 0.01 % (0.1 mg/gram) cream 1 applic VAGINAL .THREE TIMES WEEKLY Patient Comments: INSERT 1 GRAM VAGINALLY 3 TIMES PER WEEK Changed clonazepam 0.5 mg tablet 0.25 mg PO BID PRN (Reason: Anxiety) 30 Days Qty: 0 0RF Patient Comments: TAKE 1 TABLET BY MOUTH TWICE DAILY Problem Reconciliation Problems Reviewed?: Yes Patient Discharge Instructions ACTIVITY: Continue current activity DIET: continue same diet Additional Instructions: Please call back in September and ask to make an appointment with endocrinology, Dr. Kiran, at [facility] for further management of hypothyroid. Patient Instructions: DI for Vaginal Yeast Infection, DI for Constipation, DI for Hypokalemia Print Language: [place] Providers Primary Care Provider: Serge Andrew Admit Provider: Lm Mccauley Attending Provider: Lm Mccauley
[2024-07-12] MEDS: CITALOPRAM 10MG TABLET 10 MG PO (08:22)
[2024-07-12] MEDS: LEVOTHYROXINE SODIUM 100 MCG VIAL 150 MCG IV (08:23)
[2024-07-12] MEDS: ENOXAPARIN 40MG/0.4ML SYRINGE 40 MG SUBCUT (08:23)
[2024-07-12 08:27] LABS: Free Thyroxine Index 1.4 ug/dL (5.93-13.13); T4 (Thyroxine) 4.5 ug/dl (5.53-11.0); Triiodothryronine (T3) Uptake 30 % (23.5-40.5)
[2024-07-12 08:44] LABS: Thyroid Stimulating Hormone > 100.00 uIU/mL (0.465-4.68)
--- NOTE | 2024-07-12 09:54 | SW/DCPLANNER ---
Per PT/OT no needs at this time.
--- NOTE | 2024-07-12 10:50 | HMH.OTEV ---
OT Inpatient Evaluation Rehab OT IP Evaluation Start: 07/11/24 17:20 Freq: ONCE Status: Active Protocol: Document 07/12/24 10:39 [facility] (Rec: 07/12/24 10:50 [facility] [id number]) Rehab OT IP Assessment Subjective History Pt oriented x 3 on arrival. Pt agreeable to engage in therapy evaluation. Pt admitted on 07/10/24 due to hypokalemia. History and physical: Ms. Prasad is a 78-year-old female who presented to the ER because of complaint of abdominal discomfort, burning with urination, progressive fatigue and weakness. supplements history as patient is a poor story and. He is concerned as she has been more weak, symptoms have progressed over the past 2 months. She is not eating well and has not pooped in a few days. Denies fever, cough , chest pain or shortness of breath. He is worried that she has something wrong with her kidneys that is not being addressed such as a UTI. Recently treated for UTI 2 weeks ago. Found to have low potassium a few weeks ago and she did not want to stay for treatment. On workup today, potassium is 2.4, sodium 130. Patient quite fatigued. CT of abdomen per my review that shows significant stool burden . Previous urine cultures negative. Patient has normal white count. Medicine consulted for admission and further management of patient' s confusion, weakness, hypokalemia. On evaluation, she initially states she does not want to be in the hospital. After much discussion with her and her , decision made to admit for further management. Thyroid panel obtained showing severe hypothyroidism. Discussed with that this could explain patient's constellation of symptoms and worsening fatigue. Patient afebrile, hemodynamically stable. Does repeat herself when asked questions. Forgets that she has already told me different stories about family . Repeated at least 3 different stories 3 times. Concern for short-term memory/ recall deficit. Also concern for confabulation, as she denies smoking and states she takes her meds but her labs suggest she does not take her meds that she needs to and her reports she smokes up to a pack a day Subjective I don't need any help. Prior to being in the hospital , pt lived at home with her . Pt claims normally she is independent with all ADLs and IADLs. She does not require any type of AE during functional transfers. Objective Patient Orientation Person,Place,Birthday Right Upper Extremity Gross ROM WFL Left Upper Extremity Gross ROM WFL Bed Mobility bed mobility-scooting,bed mobility - supine/sit Assist Level Contact Guard/Hand Hold Transfer Training Sit/Stand Transfer Assist Level Contact Guard/Hand Hold Chair Transfer Ability Supervision/Stand by Chair Transfer Technique Sit to/from Ambulatory Lower Body Dressing Ability Standby Assistance Rehab OT IP prob,goals,plan Problems Date of Evaluation: 07/12/24 Rehab Potential Rehab Potential Innapropriate for Skilled Therapy Discharge Plan OT Discharge Plan Pt appears to be at her baseline with functional transfers and ADL independence . Pt can return home with once she is medically stable per physician. Eval Complexity Eval Charge Codes 70047 - Moderate Complexity PHYSICIAN CERTIFICATION: I certify the specified therapy services for Alley Prasad are required, authorized, and reviewed every 30 days.
--- NOTE | 2024-07-12 11:22 | HMH.PTEV ---
Physical Therapy Evaluation Rehab PT IP Evaluation Start: 07/11/24 17:20 Freq: ONCE Status: Active Protocol: Document 07/12/24 09:30 [facility] (Rec: 07/12/24 11:22 [facility] [id number]) Subjective/History History History 78-year-old female who presented to the ER because of complaint of abdominal discomfort, burning with urination, progressive fatigue and weakness. present at bedside. She reports she lives with , 1-2 ANTONETTE the home, and she is generally independent with all mobility without AD at baseline. Subjective Subjective Pt reports no c/o this am except mild confusion. She agrees to mobility assessment. [facility] How much help from another person do you currently need... Turning from your back to your side None while in a flat bed without using bedrails? Moving from lying on back to sitting on None the side of a flat bed without using bedrails? Moving to and from a bed to a chair ( None including a wheelchair)? Standing up from a chair using your arms None ? (e.g., wheelchair, bedside chair) Walking in hospital room? None Climbing 3-5 steps with a railing? None Mobility Score 24 Mobility Level [facility] Mobility Calculator Mobility 8 Walk 250 feet or more Rehab PT IP Eval Objective Appearance Patient Behavior Appropriate Patient Orientation Person,Place,Time Difficulty following instructions none Speech Pattern Clear Ambulation Patient Able to Ambulate Yes Ambulation Observation IP General Gait Pattern Observation No Deviations/Normal Ambulation Distance (feet) 200 Ambulation Assistive Device None Ambulation Ability Supervision/Stand by Balance Ability to Arise Able, uses arms to help Sitting Balance Steady, safe Standing Balance Steady, wide stance Dynamic Standing Balance Ability Good Transfers Bed Transfer Ability Independent Chair Transfer Ability Independent Sit to Stand Bed Transfer Ability Independent Sit to Stand Chair Transfer Ability Independent Rehab PT IP prob,goals,plan Problems Date of Evaluation: 07/12/24 Discharge Plan PT Discharge Plan Pt is currently appropriate to return home once medically stable for d/c. No current needs for inpatient therapy services. Eval Complexity Eval Charge Codes 99330 - High Complexity PHYSICIAN CERTIFICATION: I certify the specified therapy services for Alley Prasad are required, authorized, and reviewed every 30 days.
[2024-07-12] MEDS: LIOTHYRONINE 5 MCG 2 EACH PO (11:28)
--- NOTE | 2024-07-13 10:08 | SW/DCPLANNER ---
Spoke with patients . Patients stated that she is doing alot better but is sleeping at this time. Patients stated that they are aware of her upcoming appointments. Patients stated that they have no concerns or questions at this titme. Silvano Talbert
== END 2024-07-12 12:00 | disposition home or self-care (01) | DRG 643 ==
LOC: ER 13:33 → 2ND 16:48
PROVIDERS: Admitting Provider Internal Medicine Adolescent Medicine; Emergency Provider Student in an Organized Health Care Education/Training Program; PCP Family Medicine; Visit Provider Internal Medicine Adolescent Medicine
DX: E03.8 Other specified hypothyroidism (principal); G93.41 Metabolic encephalopathy; E87.1 Hypo-osmolality and hyponatremia; E78.5 Hyperlipidemia, unspecified; E87.6 Hypokalemia; K59.00 Constipation, unspecified; F17.210 Nicotine dependence, cigarettes, uncomplicated; B37.31 Acute candidiasis of vulva and vagina; R53.1 Weakness; Z87.440 Personal history of urinary (tract) infections; T38.1X6A Underdosing of thyroid hormones and substitutes, initial encounter; Z79.899 Other long term (current) drug therapy
CPT/HCPCS: 36415; 70450; 74177; 80048; 80053; 80061; 81001; 82140; 82803; 83605; 83690; 83735; 84100; 84436; 84443; 84479; 84484; 85025; 85610; 87086; 93005; 97163; 97166; 99285; J0696; J1650; J1885; J2405; J3480; J7120; Q9967